=== PATIENT | female | born 1965 | race Caucasian/White ===

== ENCOUNTER 2020-07-19 07:35 | Outpatient (REF) | payer MEDICARE, MEDICAID, SELFPAY ==
--- NOTE | ~2020-07-19 | XR_ITS ---
EXAMINATION: XR KNEE STANDING, BILATERAL XR KNEE, RIGHT XR KNEE, LEFT CLINICAL INFORMATION: Pain. COMPARISON: Standing bilateral and left knee radiographs dated 09/05/2018. TECHNIQUE: AP weightbearing view of the right and left knee. Lateral and sunrise views of the right and left knee. FINDINGS: Right Knee: Total right knee arthroplasty. No acute hardware or osseous fracture. No perihardware lucency to suggest loosening or infection. No significant joint effusion. No abnormal soft tissue calcification. Left knee: Moderate medial compartment joint space narrowing. Tricompartment marginal osteophytes. Findings have slightly progressed when compared to the prior examination. No osseous erosion. No fracture or dislocation. Trace joint effusion. XR/XR knee LT 2V IMPRESSION: RIGHT KNEE: Total right knee arthroplasty without evidence of complication. LEFT KNEE: Moderate medial as well as mild patellofemoral and lateral compartment osteoarthritis. Trace joint effusion. Findings have slightly progressed when compared to the prior radiographs.
--- NOTE | ~2020-07-19 | XR_ITS ---
EXAMINATION: XR KNEE STANDING, BILATERAL XR KNEE, RIGHT XR KNEE, LEFT CLINICAL INFORMATION: Pain. COMPARISON: Standing bilateral and left knee radiographs dated 09/05/2018. TECHNIQUE: AP weightbearing view of the right and left knee. Lateral and sunrise views of the right and left knee. FINDINGS: Right Knee: Total right knee arthroplasty. No acute hardware or osseous fracture. No perihardware lucency to suggest loosening or infection. No significant joint effusion. No abnormal soft tissue calcification. Left knee: Moderate medial compartment joint space narrowing. Tricompartment marginal osteophytes. Findings have slightly progressed when compared to the prior examination. No osseous erosion. No fracture or dislocation. Trace joint effusion. XR/XR knee standing BI IMPRESSION: RIGHT KNEE: Total right knee arthroplasty without evidence of complication. LEFT KNEE: Moderate medial as well as mild patellofemoral and lateral compartment osteoarthritis. Trace joint effusion. Findings have slightly progressed when compared to the prior radiographs.
--- NOTE | ~2020-07-19 | XR_ITS ---
EXAMINATION: XR KNEE STANDING, BILATERAL XR KNEE, RIGHT XR KNEE, LEFT CLINICAL INFORMATION: Pain. COMPARISON: Standing bilateral and left knee radiographs dated 09/05/2018. TECHNIQUE: AP weightbearing view of the right and left knee. Lateral and sunrise views of the right and left knee. FINDINGS: Right Knee: Total right knee arthroplasty. No acute hardware or osseous fracture. No perihardware lucency to suggest loosening or infection. No significant joint effusion. No abnormal soft tissue calcification. Left knee: Moderate medial compartment joint space narrowing. Tricompartment marginal osteophytes. Findings have slightly progressed when compared to the prior examination. No osseous erosion. No fracture or dislocation. Trace joint effusion. XR/XR knee RT 2V IMPRESSION: RIGHT KNEE: Total right knee arthroplasty without evidence of complication. LEFT KNEE: Moderate medial as well as mild patellofemoral and lateral compartment osteoarthritis. Trace joint effusion. Findings have slightly progressed when compared to the prior radiographs.
== END 2020-07-19 07:36 | disposition home or self-care (01) ==
LOC: HO.HOSX 07:35
PROVIDERS: Visit Provider Orthopaedic Surgery
DX: M25.562 Pain in left knee (principal); M23.92 Unspecified internal derangement of left knee; E78.00 Pure hypercholesterolemia, unspecified; F41.9 Anxiety disorder, unspecified; F31.9 Bipolar disorder, unspecified; R41.3 Other amnesia; F17.200 Nicotine dependence, unspecified, uncomplicated; Z96.642 Presence of left artificial hip joint; Z96.652 Presence of left artificial knee joint
CPT/HCPCS: 73560; 73565; 99212

== ENCOUNTER 2020-07-28 09:42 | Outpatient (REF) | payer MEDICARE, MEDICAID, SELFPAY ==
--- NOTE | ~2020-07-28 | MR_ITS ---
EXAMINATION: MR KNEE WITHOUT CONTRAST, LEFT CLINICAL INFORMATION: Left knee pain COMPARISON: Radiographs 07/19/2020 TECHNIQUE: MRI of the knee without contrast was performed using routine sequences on a high-field scanner. FINDINGS: MENISCI: Medial Meniscus: The body and posterior horn are diminutive, likely reflecting chronic tearing and attritional wear. There is an oblique undersurface tear of the posterior horn, and a small undersurface tear of the meniscal body. Lateral Meniscus: Complex tearing of the posterior horn with a prominent horizontal component. The meniscal body is extruded. LIGAMENTS: Cruciate: Intact Collateral: Intact EXTENSOR MECHANISM: Intact ARTICULAR CARTILAGE/BONE: Patellofemoral Compartment: Mild cartilage thinning and surface irregularity of the lateral patellar facet. Small marginal osteophytes. Medial Compartment: Mild cartilage thinning throughout the weightbearing aspect with small marginal osteophytes. Lateral Compartment: Moderate cartilage thinning of the tibia posteriorly and posterior weightbearing femoral condyle. Prominent marginal osteophytes. JOINT FLUID AND BURSAE: No significant joint effusion. MR/MR knee LT wo con IMPRESSION: Chronic appearing tearing of the medial meniscus body and posterior horn and posterior horn of the lateral meniscus. Moderate lateral and mild medial/patellofemoral compartment osteoarthritis. No significant joint effusion.
== END 2020-07-28 09:43 | disposition home or self-care (01) ==
LOC: HO.MRI 09:42
PROVIDERS: Visit Provider Orthopaedic Surgery
DX: M23.92 Unspecified internal derangement of left knee (principal)
CPT/HCPCS: 73721

== ENCOUNTER → 2020-08-16 10:24 | Outpatient (BNVA) | payer MEDICARE, MEDICAID, SELFPAY | PROVIDERS: Visit Provider Orthopaedic Surgery | DX: S83.289A Other tear of lateral meniscus, current injury, unspecified knee, initial encounter (principal); S83.249A Other tear of medial meniscus, current injury, unspecified knee, initial encounter | CPT/HCPCS: 99212 ==

== ENCOUNTER 2020-09-01 06:00 | Day surgery (SDC) | payer MEDICARE, MEDICAID, SELFPAY ==
[2020-08-27 11:58] VITALS: BMI 25.4
--- NOTE | 2020-08-31 09:15 | P.CONAN_ITS ---
HPI - Anesthesia Eval Consult details Narrative: 54yo F for Left Knee Arthroscopy PMFSH Past Medical History Medical History Anxiety Bipolar 1 disorder COVID-19 vaccine series completed High cholesterol Insomnia Memory loss Seasonal allergies Wears partial dentures Family History Family History Mother No problems noted. Father No problems noted. Surgical History Surgical History History of History of left hip replacement History of total left knee replacement Social History Social History Alcohol intake: never Smoking Status: Current every day smoker Cigarettes Per Day: 4 Current occupational status: disabled [employer] Allergies Allergy/AdvReac Type Severity Reaction Status Date / Time none Allergy Unknown Unknown Uncoded 09/01/20 06:16 Home Medications Medication Instructions Recorded Confirmed Last Taken Type buspirone 15 mg tablet 15 mg PO QAM 07/19/20 08/27/20 Unknown History cetirizine 10 mg tablet 10 mg PO DAILY 07/19/20 08/27/20 Unknown History clonazepam 1 mg tablet 1 mg PO BEDTIME 07/19/20 08/27/20 Unknown History prazosin 5 mg capsule 5 mg PO BEDTIME 07/19/20 08/27/20 Unknown History temazepam 30 mg capsule 0 mg PO 07/19/20 Unknown History tetrahydrozoline 0.05 % eye drops 0 drp OPHTHALMIC (EYE) DIRECTED 07/19/20 08/27/20 Unknown History trazodone 150 mg tablet 150 mg PO BEDTIME PRN 07/19/20 08/27/20 Unknown History zolpidem 10 mg tablet 10 mg PO BEDTIME PRN 07/19/20 08/27/20 Unknown History Exam Exam Date and Time: August 31, 2020 0915 Height,Weight and Vital Signs: Height 5 ft 4 in Weight 67.132 kg Assessment and Plan Assessment Anesthesia Assessment: Chart Reviewed
[2020-09-01] VITALS (8 sets, daily range): BP systolic 100–123; BP diastolic 62–74; PULSE 70–82; RESP 16; TEMP 36.2; O2SAT 97–100
[2020-09-01] MEDS: Lactated Ringers 1,000 ML 100 ML IVCONT (06:41)
--- NOTE | 2020-09-01 07:11 | P.CONAN_ITS ---
[facility] Past Medical History Medical History Anxiety Bipolar 1 disorder COVID-19 vaccine series completed High cholesterol Insomnia Memory loss Seasonal allergies Wears partial dentures Family History Family History Mother No problems noted. Father No problems noted. Surgical History Surgical History History of History of left hip replacement History of total left knee replacement Social History Social History Alcohol intake: never Smoking Status: Current every day smoker Cigarettes Per Day: 4 Are you DNR?: No Advance Directives: No Advance Directives Information Provided: No Advance Directives on File: No Current occupational status: disabled Meds Allergies Allergy/AdvReac Type Severity Reaction Status Date / Time none Allergy Unknown Unknown Uncoded 09/01/20 06:16 Active Medications: Current Medications Generic Name Dose Route Start Last Admin Trade Name Freq PRN Reason Stop Dose Admin Albuterol Sulfate 2.5 mg 09/01/20 06:11 Albuterol Sulfate (0.083%) 2.5 Mg/3 Ml Vial.Neb INHALE ONCE PRN Shortness of Breath/Wheezing Lactated Ringer's 1,000 mls @ 100 mls/hr 09/01/20 06:15 09/01/20 06:41 Lr IVCONT 100 mls/hr .Q10H IRASEMA Administration Home Medications Medication Instructions Recorded Confirmed Last Taken Type buspirone 15 mg tablet 15 mg PO QAM 07/19/20 08/27/20 Unknown History cetirizine 10 mg tablet 10 mg PO DAILY 07/19/20 08/27/20 Unknown History clonazepam 1 mg tablet 1 mg PO BEDTIME 07/19/20 08/27/20 Unknown History prazosin 5 mg capsule 5 mg PO BEDTIME 07/19/20 08/27/20 Unknown History temazepam 30 mg capsule 0 mg PO 07/19/20 Unknown History tetrahydrozoline 0.05 % eye drops 0 drp OPHTHALMIC (EYE) DIRECTED 07/19/20 08/27/20 Unknown History trazodone 150 mg tablet 150 mg PO BEDTIME PRN 07/19/20 08/27/20 Unknown History zolpidem 10 mg tablet 10 mg PO BEDTIME PRN 07/19/20 08/27/20 Unknown History Exam Exam Date and Time: September 01, 2020 0711 Height,Weight and Vital Signs: Height 5 ft 4 in Weight 67.132 kg Last Vital Signs Temp 97.2 F 09/01/20 06:29 Pulse 70 09/01/20 06:29 Resp 16 09/01/20 06:29 BP 102/71 09/01/20 06:29 Pulse Ox 97 09/01/20 06:29 Airway Mallampati Class: II TM Dist: >3cm Neck ROM: Full Partial: Lower Heart: RRR Lungs: CTA
--- NOTE | 2020-09-01 07:27 | MHC.SHP ---
Pre-Procedural Eval Section A The patient is an INPATIENT: No Changes since office visit: Yes Patient answered all questions; No Cold of Flu in the past 2 weeks, No New Medical Problems and No Changes in Medication The History & Physical has been completed within 30 days and I have reviewed it.: Yes Section B Chief Complaint: left knee pain Allergies: Allergies Allergy/AdvReac Type Severity Reaction Status Date / Time none Allergy Unknown Unknown Uncoded 09/01/20 06:16 Plan I have reviewed the history and physical and performed a pertinent physical examination on my patient. No changes have occurred unless specified.
--- NOTE | 2020-09-01 08:13 | PM.OP ---
Brief Operative Note Date of Service: 09/01/20 Pre-op diagnosis: left knee medial meniscus tear Post-op diagnosis: other Procedure: medial meniscus tear lateral meniscus tear knee OA Implants: none Surgeon: Ten Lim MD Anesthesia: GETA and local Was an Mixer Operator Raw Salt used for this Procedure?: No Estimated blood loss (mL): 0 Tourniquet time (min): 27 IV fluids (mL): 650 Pathology: none sent Condition: stable Disposition: PACU
--- NOTE | 2020-09-01 08:16 | W.PM.OPN ---
Operative Note Operative Note Date of Service: 09/01/20 Narrative: Pre-op diagnosis: left knee medial meniscus tear Post-op diagnosis: other Procedure: medial meniscus tear lateral meniscus tear knee OA Implants: none Surgeon: Ten Lim MD Anesthesia: GETA and local Was an Platen Press Operator Apprentice used for this Procedure?: No Estimated blood loss (mL): 0 Tourniquet time (min): 27 IV fluids (mL): 650 Pathology: none sent Condition: stable Disposition: PACU Procedure in detail: Patient was brought to the operating room placed supine on the arthroscopic table and prepped and draped in standard sterile fashion. A time-out was called to identify proper site proper procedure proper surgeon and IV antibiotics per weight were administered. I began by exsanguinating the limb and insufflating tourniquet to 300 mm Hg. Then made a standard anterolateral stab incision. The knee was insufflated with water and 30 degree arthroscope was placed. There was grade 1 fibrillations of the lateral aspect of the central patellar facet but overall suprapatellar pouch was clean and the gutters were clean. I descended into the medial compartment where I made my medial portal under direct visualization. There was a chronic complex tear of the body and posterior horn of the medial meniscus. Root was intact and there was grade 1 changes with some scattered grade 2 changes throughout the medial compartment. I used a combination of biter shaver and cautery to remove unstable portions of the meniscus. Approximately 40% of the meniscal volume was removed but the body waas scarred and diminutive. The ACL was examined and found to be intact and the lateral compartment had G4 changes of the tibia and a degenerative tear of the body of the lateral meniscus. There was a flap tear extending into the root but the meniscus was stable. I used a biter and a shaver to debride this down to stable edges. I then removed all instrumentation and closed the portals with skin glue. 25 mL of 2% Marcaine with epinephrine was injected into the joint and the surrounding soft tissues. Patient was then placed in sterile dressing extubated brought recovery room stable condition. There were no known complications.
[2020-09-01] MEDS: Acetaminophen 325 MG TABLET 650 MG PO (08:47)
[2020-09-01] MEDS: oxyCODONE HCl Immed Release 5 MG TABLET PO (08:48)
--- NOTE | 2020-09-01 14:16 | HO.POSTANES ---
Post Anesthesia Evaluation Post Anesthesia Evaluation Vital Signs: Vital Signs Temp Pulse Resp BP Pulse Ox 09/01/20 09:35 97.1 F 82 16 107/62 98 09/01/20 09:20 80 16 105/62 97 09/01/20 09:05 80 16 100/63 97 09/01/20 08:50 81 16 107/64 99 09/01/20 08:45 80 16 114/63 100 09/01/20 08:40 74 16 106/65 100 09/01/20 08:35 97.1 F 74 16 123/74 100 09/01/20 06:29 97.2 F 70 16 102/71 97 Anesthesia: General Mental Status: Awake Pain Control: Satisfactory Nausea/Vomiting: None Hydration: Adequate Anesthesia-Related Issues: No Anes. Related Issues
== END 2020-09-01 10:29 | disposition home or self-care (01) ==
PROVIDERS: Visit Provider Orthopaedic Surgery
PROC: (CPT 29870; principal; 2020-09-01 07:30)
DX: M23.222 Derangement of posterior horn of medial meniscus due to old tear or injury, left knee (principal); M23.301 Other meniscus derangements, unspecified lateral meniscus, left knee; M17.0 Bilateral primary osteoarthritis of knee; F31.9 Bipolar disorder, unspecified; Z79.899 Other long term (current) drug therapy; Z96.642 Presence of left artificial hip joint; Z96.652 Presence of left artificial knee joint; R41.3 Other amnesia; F17.210 Nicotine dependence, cigarettes, uncomplicated
CPT/HCPCS: 29880; J0171; J0690; J1100; J1885; J2250; J2405; J3010

== ENCOUNTER 2020-09-07 09:56 | Emergency (ER) | payer MEDICARE, MEDICAID, SELFPAY ==
--- NOTE | ~2020-09-07 | US_ITS ---
EXAMINATION: US VENOUS ULTRASOUND WITH DOPPLER LOWER EXTREMITY, LEFT CLINICAL INFORMATION: Left lower extremity swelling, status post procedure and 519. COMPARISON: None TECHNIQUE: Ultrasound of the deep veins is performed from the hip to the calf with compression sonography and color and pulse Doppler assessment. Spectral analysis with color-flow imaging is performed. FINDINGS: There is acute clot visualized in the left greater saphenous vein, proximal, mid and distal special femoral veins extending into the popliteal vein. The posterior tibial vein has some flow. The right common femoral vein is patent as well. There is no left-sided Rose's cyst. If the patient's symptoms persist, followup ultrasound in 5 days 7 days might be of value to exclude proximal propagation from a non-visualized calf vein. US/US venous duplex LE IMPRESSION: Acute thrombus left lower extremity.
--- NOTE | ~2020-09-07 | CT_ITS ---
EXAMINATION: CT ANGIOGRAM OF THE CHEST WITH AND WITHOUT CONTRAST (CT PULMONARY ANGIOGRAM FOR PE) CLINICAL INFORMATION: Reason for Exam +DVT. R/o PE. c/o SOB COMPARISON: None TECHNIQUE: Prior to contrast administration, noncontrast localization images were obtained. Subsequently, multidetector volumetric imaging was performed from the thoracic inlet to below the diaphragms following the administration of 80 mL Omnipaque 350 intravenous contrast. No contrast reaction reported Sagittal, coronal, and MIP oblique sagittal reformatted images were obtained on the CT workstation, uploaded to PACS, and reviewed. This CT examination was performed using dose optimization techniques as appropriate, variously including the following: *Automated exposure control *Adjustment of mA and/or kV according to patient size (this includes techniques or standardized protocols for targeted exams where dose is matched to indication/reason for exam; i.e. extremities or head) *Use of iterative reconstruction technique Total exam dose-length product 250 mGy-cm FINDINGS: QUALITY OF STUDY/CONTRAST BOLUS: Satisfactory. PULMONARY ARTERIES: No central or segmental pulmonary emboli. THORACIC AORTA: No aneurysm or dissection. LUNG: No focal consolidation, nodules or masses. There is focal atelectatic changes in the right middle lobe. There is a groundglass opacity seen in both upper lobes and both lower lobes PLEURA: No pleural effusion or pneumothorax. MEDIASTINUM: Normal heart size. There is mild pericardial effusion. No hilar or mediastinal lymphadenopathy. No evidence of septal bowing or right heart strain. CHEST WALL/AXILLA: No axillary or internal mammary lymphadenopathy. OSSEOUS STRUCTURES: No acute or suspicious osseous abnormality. UPPER ABDOMEN: Unremarkable. No reflux of contrast into the hepatic veins to suggest elevated right heart pressures. CT/CT angio chest PE protocol IMPRESSION: No evidence of PE. No evidence of aortic dissection or aneurysm. Small pericardial effusion. Right middle lobe platelike atelectasis. Nonspecific groundglass opacity in both upper lobes and lower lobes could be secondary to airway disease. VTE: negative
[2020-09-07 10:02] VITALS: BP 121/81; PULSE 96; RESP 16; TEMP 36.9; O2SAT 97; BMI 25.7
--- NOTE | 2020-09-07 10:54 | ECG_ITS ---
Test Reason : R/O PE Blood Pressure : / mmHG Vent. Rate : 083 BPM Atrial Rate : 083 BPM P-R Int : 188 ms QRS Dur : 080 ms QT Int : 378 ms P-R-T Axes : 056 017 037 degrees QTc Int : 444 ms Normal sinus rhythm Normal ECG When compared with ECG of 26-APR-2016 10:10, Nonspecific T wave abnormality no longer evident in Lateral leads Referred By: Nicky Aquino Electronically Signed By:DACIA PINK
[2020-09-07 12:47] LABS: MANUAL DIFF FLAG NO
[2020-09-07 12:50] LABS: Basophils Absolute Auto 0.1 X10*3/uL (0.0-0.2); Basophils Percent Auto 0.5 % (0-2); Eosinophils Absolute Auto 0.2 X10*3/uL (0.0-0.4); Eosinophils Percent Auto 1.8 % (0-4); Hematocrit 37.2 % (37-47); Hemoglobin 12.1 g/dl (12.0-16.0); Imm Gran Abs Auto 0.02 X10*3/uL (0.00-0.03); Imm Gran Pct Auto 0.2 % (0.0-0.4); Lymphocytes Absolute Auto 1.8 X10*3/uL (1.2-4.9); Mean Corpuscular HGB Conc 32.5 g/dl (31.0-35.0); Mean Corpuscular Hemoglobin 29.9 pg (27.0-33.0); Mean Corpuscular Volume 91.9 fL (80-98); Monocytes Absolute Auto 0.4 X10*3/uL (0.1-1.2); Monocytes Percent Auto 4.2 % (2-11); Neutrophils Percent Auto 74.3 % (45-73); Platelet Count 203 X10*3/uL (160-400); Red Blood Count 4.05 X10*6/uL (4.20-5.50); Red Cell Distribution Width 12.6 % (11.0-16.0); White Blood Count 9.5 X10*3/uL (4.8-10.8)
[2020-09-07 12:55] LABS: INTERNATIONAL NORM RATIO 1.1 (0.9-1.1); Prothrombin Time 13.1 SEC (10.8-13.0)
[2020-09-07 13:12] LABS: Partial Thromboplastin Time 39.8 SEC (24.1-38.0)
[2020-09-07] MEDS: Acetaminophen 325 MG TABLET 650 MG PO (13:13)
[2020-09-07] MEDS: oxyCODONE HCl Immed Release 5 MG TABLET PO (13:14)
--- NOTE | 2020-09-07 13:14 | PC.NURSE ---
IV placed, labs obtained, and pt medicated for pain. Awaiting disposition/plan at this time.
[2020-09-07 13:15] LABS: Alanine Aminotransferase 15 U/L (0-31); Albumin Level 4.4 g/dL (3.5-5.0); Alkaline Phosphatase 74 U/L (39-117); Anion Gap 14 (12-20); Aspartate Amino Transferase 17 U/L (5-31); Bilirubin Direct 0.2 mg/dL (0.0-0.5); Bilirubin Total 0.3 mg/dL (0.0-1.0); Blood Urea Nitrogen 10 mg/dL (9-16); Calcium 9.4 mg/dL (8.4-10.2); Carbon Dioxide 26 mmol/L (22-29); Chloride 102 mmol/L (96-108); Creatinine Clr Calc Pharmacy 88.1; Estimated Glomerular Filt Rate > 60; Glucose Random 100 mg/dL (60-115); Magnesium 2.1 mg/dL (1.6-2.6); Potassium 4.4 mmol/L (3.3-5.1); Sodium 138 mmol/L (135-145); Total Protein 7.2 g/dL (6.5-8.0)
[2020-09-07 13:21] LABS: B Type Natriuretic Peptide < 10 pg/mL (<100)
[2020-09-07 13:38] LABS: D Dimer 22180 NG/ML
--- NOTE | 2020-09-07 14:38 | ED.LOWEXIN ---
HPI - Extremity Injury (Lower) General Chief Complaint: Extremity Injury, Lower Stated Complaint: lt leg pain Time Seen by Provider: 09/07/20 10:52 Source: patient Mode of arrival: ambulatory History of Present Illness HPI Narrative: 54-year-old female with a past medical history of anxiety, bipolar, Derrek and Derrek COVID-19 vaccine, hyperlipidemia, seasonal allergies, meniscal surgery on 09/01, presenting to the ED complaining of left lower extremity pain and swelling worsening since surgery but over the past few days. Reports ecchymosis to ankle. Denies taking anticoagulation. Does report mild SOB. Denies fever, chills, numbness, tingling, weakness, chest pain, recent travel, history of blood clots, long car rides, oral OCPs Related Data Home Medications Medication Instructions Recorded Confirmed buspirone 15 mg tablet 15 mg PO QAM 07/19/20 08/27/20 cetirizine 10 mg tablet 10 mg PO DAILY 07/19/20 08/27/20 clonazepam 1 mg tablet 1 mg PO BEDTIME 07/19/20 08/27/20 prazosin 5 mg capsule 5 mg PO BEDTIME 07/19/20 08/27/20 temazepam 30 mg capsule 0 mg PO 07/19/20 tetrahydrozoline 0.05 % eye drops 0 drp OPHTHALMIC (EYE) DIRECTED 07/19/20 08/27/20 trazodone 150 mg tablet 150 mg PO BEDTIME PRN 07/19/20 08/27/20 zolpidem 10 mg tablet 10 mg PO BEDTIME PRN 07/19/20 08/27/20 Previous Rx's Medication Instructions Recorded meloxicam 15 mg tablet 15 mg PO DAILY 30 Days #30 tab 07/19/20 hydrocodone-acetaminophen 1 tab PO Q8H PRN #28 tab 09/01/20 Compression socks, small #1 ea 09/07/20 acetaminophen [Tylenol Extra 500 mg PO Q6H PRN #20 tab 09/07/20 Strength] apixaban 5 mg PO PER PKG DIR #74 ea 09/07/20 azithromycin See Rx Instructions .ROUTE 09/07/20 .COMPLEX #6 tab oxycodone 5 mg PO Q8H PRN 3 Days #9 tab 09/07/20 Allergies Allergy/AdvReac Type Severity Reaction Status Date / Time No Known Allergies Allergy Verified 09/07/20 10:10 Review of Systems Review of Systems: Constitutional: No Fever, No Chills Cardiovascular: No Chest Pain, +SOB, No Dyspnea on Exertion, +LLE Edema Respiratory: No Cough, No Dyspnea Gastrointestinal: No Nausea, No Vomiting, No Abdominal pain Musculoskeletal: + joint pain, No Myalgias, + Joint Swelling Skin:+ ecchymosis Neuro: No Weakness, No Numbness, No Paresthesias Yes all other systems are reviewed and are negative [facility] Past Medical History Attestation statement: The following information was validated with the patient. Medical History (Updated 09/07/20 @ 16:21 by MANUEL Bautista) Anxiety Bipolar 1 disorder COVID-19 vaccine series completed High cholesterol Insomnia Memory loss Seasonal allergies Wears partial dentures Surgical History History of History of left hip replacement History of total left knee replacement Family History Family History Mother No problems noted. Father No problems noted. Social History Social History Alcohol intake: never Smoking Status: Current every day smoker Cigarettes Per Day: 4 Advance Directives: No Advance Directives Information Provided: No Current occupational status: disabled Physical Exam Vital Signs: Vital Signs: Last Vital Signs Temp 98.5 F 09/07/20 10:02 Pulse 96 09/07/20 10:02 Resp 16 09/07/20 10:02 BP 121/81 09/07/20 10:02 Pulse Ox 97 09/07/20 10:02 Body Mass Index 25.7 Const: General: cooperative and healthy appearing Orientation/consciousness: patient oriented x3 Limitations: no limitations HENMT: Head: Yes normal to inspection Ears: hearing grossly normal bilaterally General nose exam: Normal external nose present Face and sinus: Yes normal facial exam Eyes: General: appearance normal, both eyes and all related structures EOM: EOMs intact bilaterally Neck: Neck: Yes normal visual inspection Resp: Effort & Inspection: normal respiratory effort, not labored and no stridor Auscultation: clear to auscultation bilaterally and no rhonchi Cardio: Rate: regular rate Heart sounds: S1 normal heart sound present and S2 normal heart sound present GI: Inspection: Yes normal to inspection Skin: Rashes: no rashes Wounds: no wounds Neuro: Other: Limping gait secondary to pain General: patient oriented x3 Extrem: Other: Left lower extremity with notable pitting edema/swelling and ecchymosis to ankle. No superimposed cellulitis. Distal pulses intact. Sensation intact to light touch. Course Course Course Narrative: -no leukocytosis, H&H stable, labs otherwise unremarkable US venous duplex LE LT IMPRESSION: Acute thrombus left lower extremity -D-dimer elevated at 22,180 1440--CT angio chest PE protocol IMPRESSION: No evidence of PE. No evidence of aortic dissection or aneurysm. Small pericardial effusion. Right middle lobe platelike atelectasis. Nonspecific groundglass opacity in both upper lobes and lower lobes could be secondary to airway disease. VTE: negative >> rapid COVID-[address] Muniz, vascular surgery paged pertaining to venous duplex ultrasound results -[id number]-- Spoke to Dr. Muniz, recommended anticoagulation, compression sockings, elevation, and follow up outpatient in a couple weeks. No surgical intervention indicated at this time MDM - Extremity Injury (Lower) MDM Narrative Medical decision making narrative: 54-year-old female with a past medical history of anxiety, bipolar, Derrek and Derrek COVID-19 vaccine, hyperlipidemia, seasonal allergies, meniscal surgery on 09/01, presenting to the ED complaining of left lower extremity pain and swelling worsening since surgery but over the past few days. On exam VSS, NAD, physical exam as above. Concern for DVT/PE vs ?surgical complication Plan: EKG, labs, venous duplex ultrasound, CTA, reassess Medical Records Attestation: I reviewed the patient's medical records. Lab Data Attestation: I reviewed the patient's lab results. Result diagrams: 09/07/20 12:38 09/07/20 12:38 Labs: Lab Results 09/07/20 09/07/20 09/07/20 Range/Units 12:38 12:38 12:38 WBC 9.5 (4.8-10.8) X10*3/uL RBC 4.05 L (4.20-5.50) X10*6/uL Hgb 12.1 (12.0-16.0) g/dl Hct 37.2 (37-47) % MCV 91.9 (80-98) fL MCH 29.9 (27.0-33.0) pg MCHC 32.5 (31.0-35.0) g/dl RDW 12.6 (11.0-16.0) % Plt Count 203 (160-400) X10*3/uL MPV 10.0 (9.4-12.3) fL Immature Gran % (Auto) 0.2 (0.0-0.4) % Neut % (Auto) 74.3 H (45-73) % Lymph % (Auto) 19.0 L (20-40) % [place] % (Auto) 4.2 (2-11) % Eos % (Auto) 1.8 (0-4) % Baso % (Auto) 0.5 (0-2) % Lymph # (Auto) 1.8 (1.2-4.9) X10*3/uL [place] # (Auto) 0.4 (0.1-1.2) X10*3/uL Eos # (Auto) 0.2 (0.0-0.4) X10*3/uL Baso # (Auto) 0.1 (0.0-0.2) X10*3/uL Abs Immat Gran (auto) 0.02 (0.00-0.03) X10*3/uL Absolute Neuts (auto) 7.0 (2.0-8.3) X10*3/uL Absolute Nucleated RBC 0.000 (0.0-0.012) X10*3/uL Nucleated RBC % (auto) 0.0 (0.0-0.2) /100WBC PT 13.1 H (10.8-13.0) SEC INR 1.1 (0.9-1.1) APTT 39.8 H (24.1-38.0) SEC D-Dimer NG/ML Sodium 138 (135-145) mmol/L Potassium 4.4 (3.3-5.1) mmol/L Chloride 102 (96-108) mmol/L Carbon Dioxide 26 (22-29) mmol/L Anion Gap 14 (12-20) BUN 10 (9-16) mg/dL Creatinine 0.70 (0.5-1.4) mg/dL Estim Creat Clear Calc 88.1 Estimated GFR > 60 Random Glucose 100 (60-115) mg/dL Calcium 9.4 (8.4-10.2) mg/dL Magnesium 2.1 (1.6-2.6) mg/dL Total Bilirubin 0.3 (0.0-1.0) mg/dL Direct Bilirubin 0.2 (0.0-0.5) mg/dL AST 17 (5-31) U/L ALT 15 (0-31) U/L Alkaline Phosphatase 74 (39-117) U/L B-Natriuretic Peptide (<100) pg/mL Total Protein 7.2 (6.5-8.0) g/dL Albumin 4.4 (3.5-5.0) g/dL COVID-19 (BRANDIE) (Negative) COVID-19 Clin Com 09/07/20 09/07/20 09/07/20 Range/Units 12:38 12:38 15:14 WBC (4.8-10.8) X10*3/uL RBC (4.20-5.50) X10*6/uL Hgb (12.0-16.0) g/dl Hct (37-47) % MCV (80-98) fL MCH (27.0-33.0) pg MCHC (31.0-35.0) g/dl RDW (11.0-16.0) % Plt Count (160-400) X10*3/uL MPV (9.4-12.3) fL Immature Gran % (Auto) (0.0-0.4) % Neut % (Auto) (45-73) % Lymph % (Auto) (20-40) % [place] % (Auto) (2-11) % Eos % (Auto) (0-4) % Baso % (Auto) (0-2) % Lymph # (Auto) (1.2-4.9) X10*3/uL [place] # (Auto) (0.1-1.2) X10*3/uL Eos # (Auto) (0.0-0.4) X10*3/uL Baso # (Auto) (0.0-0.2) X10*3/uL Abs Immat Gran (auto) (0.00-0.03) X10*3/uL Absolute Neuts (auto) (2.0-8.3) X10*3/uL Absolute Nucleated RBC (0.0-0.012) X10*3/uL Nucleated RBC % (auto) (0.0-0.2) /100WBC PT (10.8-13.0) SEC INR (0.9-1.1) APTT (24.1-38.0) SEC D-Dimer 70688 NG/ML Sodium (135-145) mmol/L Potassium (3.3-5.1) mmol/L Chloride (96-108) mmol/L Carbon Dioxide (22-29) mmol/L Anion Gap (12-20) BUN (9-16) mg/dL Creatinine (0.5-1.4) mg/dL Estim Creat Clear Calc Estimated GFR Random Glucose (60-115) mg/dL Calcium (8.4-10.2) mg/dL Magnesium (1.6-2.6) mg/dL Total Bilirubin (0.0-1.0) mg/dL Direct Bilirubin (0.0-0.5) mg/dL AST (5-31) U/L ALT (0-31) U/L Alkaline Phosphatase (39-117) U/L B-Natriuretic Peptide < 10 (<100) pg/mL Total Protein (6.5-8.0) g/dL Albumin (3.5-5.0) g/dL COVID-19 (BRANDIE) Negative (Negative) COVID-19 Clin Com See Note Discharge Plan Discharge Clinical Impression: Ground glass opacity present on imaging of lung Acute deep vein thrombosis (DVT) of left lower extremity Qualifiers: Affected thrombotic vein of extremity: unspecified vein of extremity Qualified Code(s): I82.402 - Acute embolism and thrombosis of unspecified deep veins of left lower extremity Patient Disposition: Home, Self-Care Instructions: Apixaban (By mouth), Deep Vein Thrombosis (ED) Additional Instructions: You have a large blood clot in her left leg. Eliquis is a blood thinner, take as prescribed You need to follow-up with a vascular surgeon in 2 weeks outpatient You need to wear compression stockings, and elevate your leg Taking a blood thinner but do bleeding risk, if you fall and hit her head, have any blood in your urine, cough up blood, black or red stools return to the ED Take Tylenol for pain In addition oxycodone is for severe pain, take for the next couple days Your CT scan of her chest did not show any blood clots in her lungs however did show nonspecific opacities, azithromycin is an antibiotic, take as prescribed Follow-up with her doctor Prescriptions: New apixaban 5 mg (74 tabs) tablets,dose pack 5 mg PO PER PKG DIR Qty: 74 RF: 0 acetaminophen [Tylenol Extra Strength] 500 mg tablet 500 mg PO Q6H PRN (Reason: pain or fever) Qty: 20 RF: 0 azithromycin 250 mg tablet See Rx Instructions .ROUTE .COMPLEX Qty: 6 RF: 0 oxycodone 5 mg tablet 5 mg PO Q8H PRN (Reason: pain, severe) 3 Days Qty: 9 RF: 0 (DME) Compression socks, small Misc See Rx Instructions .ROUTE .MEDSUPPLY Qty: 1 RF: 0 No Action hydrocodone-acetaminophen 5-325 mg tablet 1 tab PO Q8H PRN (Reason: pain (scale score 4-6)) Qty: 28 RF: 0 buspirone 15 mg tablet 15 mg PO QAM RF: 0 tetrahydrozoline 0.05 % drops 0 drp ophthalmic (eye) DIRECTED RF: 0 cetirizine 10 mg tablet 10 mg PO DAILY RF: 0 zolpidem 10 mg tablet 10 mg PO BEDTIME PRN (Reason: Insomnia) RF: 0 trazodone 150 mg tablet 150 mg PO BEDTIME PRN (Reason: Insomnia) RF: 0 clonazepam 1 mg tablet 1 mg PO BEDTIME RF: 0 temazepam 30 mg capsule 0 mg PO RF: 0 prazosin 5 mg capsule 5 mg PO BEDTIME RF: 0 meloxicam 15 mg tablet 15 mg PO DAILY 30 Days Qty: 30 RF: 3 Referrals: Randall Muniz MD [Physician] - 2 weeks Interventions: ED Discharge Assessment Last Done: 09/07/20 16:35 Discharge Date/Time: 09/07/20 16:41
[2020-09-07 15:38] LABS: COVID-19 Test Negative (Negative); IDNOW Serial# 9DD0AD1C
[2020-09-07] MEDS: Apixaban 5 MG TABLET 10 MG PO (16:23)
== END 2020-09-07 16:41 | disposition home or self-care (01) ==
PROVIDERS: Physician Assistant; Emergency Provider Emergency Medicine
DX: I82.402 Acute embolism and thrombosis of unspecified deep veins of left lower extremity (principal); R91.8 Other nonspecific abnormal finding of lung field; M79.605 Pain in left leg; R22.42 Localized swelling, mass and lump, left lower limb; Z20.822 Contact with and (suspected) exposure to COVID-19; E78.5 Hyperlipidemia, unspecified; F17.200 Nicotine dependence, unspecified, uncomplicated
CPT/HCPCS: 36415; 71275; 80048; 80076; 83735; 83880; 85025; 85379; 85610; 85730; 87635; 93005; 93971; 99284

== ENCOUNTER → 2020-09-09 13:09 | Outpatient (BNVA) | payer MEDICARE, MEDICAID, SELFPAY | PROVIDERS: Visit Provider Orthopaedic Surgery | DX: M17.12 Unilateral primary osteoarthritis, left knee (principal); I82.412 Acute embolism and thrombosis of left femoral vein | CPT/HCPCS: 99212 ==

== ENCOUNTER 2020-09-20 11:53 | Outpatient (REF) | payer MEDICARE, MEDICAID, SELFPAY ==
--- NOTE | ~2020-09-20 | MM_ITS ---
EXAMINATION: MM SCREENING DIGITAL BREAST TOMOSYNTHESIS, BILATERAL CLINICAL INFORMATION: Screening. Asymptomatic. The lifetime risk of breast cancer based on the Tyrer-Cuzick Model is 6%. COMPARISON: Mammography: 03/14/2016 TECHNIQUE: Digital breast tomosynthesis is performed in both the craniocaudal and mediolateral oblique views along with computer-aided detection (CAD). Synthesized 2D images are generated from the tomosynthesis. FINDINGS: There are scattered areas of fibroglandular density (ACR BI-RADS breast composition Category b). There are no significant masses, abnormal calcifications, or other abnormalities. The axilla and skin contours are unremarkable. No significant changes. MM/MM tomosynthesis screening BI IMPRESSION: No mammographic evidence of malignancy. ASSESSMENT: BI-RADS 1: Negative RECOMMENDATION: Routine annual mammography screening. This patient's information was entered into a reminder system with a target due date for their next mammogram.
== END 2020-09-20 11:54 | disposition home or self-care (01) ==
LOC: HO.MAMMO 11:53
PROVIDERS: PCP Internal Medicine; Visit Provider Internal Medicine
DX: Z12.31 Encounter for screening mammogram for malignant neoplasm of breast (principal)
CPT/HCPCS: 77063; 77067

== ENCOUNTER → 2020-10-13 08:15 | Outpatient (BNVA) | payer MEDICARE, MEDICAID, SELFPAY | PROVIDERS: PCP Internal Medicine; Visit Provider Nurse Practitioner Family | DX: Z12.11 Encounter for screening for malignant neoplasm of colon (principal); K59.00 Constipation, unspecified | CPT/HCPCS: 99202 ==

== ENCOUNTER 2020-10-14 10:55 | Outpatient (RCR) | payer MEDICARE, MEDICAID, SELFPAY ==
--- NOTE | 2020-10-14 11:49 | MHC.PT.EP ---
[facility] [place] Office [place] Office [place] Office [address]án Tr[place] [address] [phone] F: [phone] F: [phone] F: [phone] F: [phone] Physical Therapy Plan of Care Date of Evaluation: Date of Surgery: 09/01/20 Diagnosis: post-op arthroscopic debridement/partial meniscectomy 09/01 (+) DVT 09/07 (on Eliquis) Assessment: pt presents to physical therapy with pain, decreased range of motion, decreased strength, impaired functional mobility, impaired postural awareness, and gait deviations. pt is a good candidate for skilled PT due to age, potential remediation of impairments, typical disease/condition progression and prognosis, comorbidities, and motivation. pt would benefit from tailored strengthening and stretching exercise program, functional training, gait training, postural re-training, neuromuscular re-education, modalities as needed for pain, equipment safety demonstration. Frequency and Duration: The patient will be seen 2x/wk for 4 wks Short Term Goals: pt will be I w/ HEP to promote self-management of condition. pt will improve L knee extension to 0 degrees to remediate initial contact impairment w/ gait on even ground. Operations Executive Goals: pt will perform 10x STS w/ no UE assist to promote functional independence. pt will report <1/10 L knee pain w/ standing for >15 min to promote full return to self-care ADLs like showering. Treatment Plan: Modalities to reduce pain, spasms and effusion. Manual therapy to restore motion and function. Therapeutic exercise to improve strength and flexibility. Neuromuscular re-education for posture and balance. Therapeutic activities to return to functional activities of daily living. Electronically signed by: Kristie Lozada PT, DPT Please sign and return to therapist. Thank you for your referral.
--- NOTE | 2020-10-25 10:16 | MHC.PT.DC ---
[facility] [place] Office [place] Office [place] Office [address] Iván Tr[place] [address] [facility] [phone] F: [phone] F: [phone] F: [phone] F: [phone] Physical Therapy Discharge Report Diagnosis: post-op arthroscopic debridement/partial meniscectomy 09/01 (+) DVT 09/07 (on Eliquis) Date of Surgery: 09/01/20 Date of Evaluation: 10/14/20 Date of Discharge: 10/25/20 Treatments to Date: 1 Cancellations to Date: 0 No Shows to Date: 2 Discharge Status: Visit Non-compliance Discharge Summary: Per [facility] Core Therapy policy the patient is to be discharged due to failure to comply with attendance policy. Electronically signed by: Kristie Lozada PT, DPT Please sign and return to therapist. Thank you for your referral.
== END 2020-10-25 10:16 | disposition home or self-care (01) ==
LOC: HO.PT 10:55
PROVIDERS: PCP Internal Medicine; Visit Provider Orthopaedic Surgery
DX: M17.12 Unilateral primary osteoarthritis, left knee (principal); I82.412 Acute embolism and thrombosis of left femoral vein
CPT/HCPCS: 97110; 97161

== ENCOUNTER → 2020-11-04 13:06 | Outpatient (BNVA) | payer MEDICARE, MEDICAID, SELFPAY | PROVIDERS: PCP Internal Medicine; Visit Provider Orthopaedic Surgery | DX: M25.562 Pain in left knee (principal); M17.12 Unilateral primary osteoarthritis, left knee; I82.412 Acute embolism and thrombosis of left femoral vein; E78.00 Pure hypercholesterolemia, unspecified; F17.210 Nicotine dependence, cigarettes, uncomplicated; Z96.642 Presence of left artificial hip joint; Z96.652 Presence of left artificial knee joint | CPT/HCPCS: 99212 ==

== ENCOUNTER 2021-02-16 09:27 | Outpatient (REF) | payer MEDICARE, MEDICAID, SELFPAY ==
--- NOTE | ~2021-02-16 | US_ITS ---
EXAMINATION: US ABDOMEN COMPLETE CLINICAL INFORMATION: Elevated LFTs. COMPARISON: None TECHNIQUE: Real-time imaging of the abdominal viscera. FINDINGS: PANCREAS: The visualized pancreatic head and body are unremarkable. The pancreatic tail is obscured by gas. ABDOMINAL AORTA: The proximal, mid, and distal segments are normal in caliber. INFERIOR VENA CAVA: Visualized portions are normal. LIVER: The liver is normal in size. The liver contour is normal. There is diffuse increased liver parenchymal echogenicity, consistent with hepatic steatosis. No focal hepatic lesion. There is no intrahepatic biliary duct dilatation seen. GALLBLADDER: Normal. The gallbladder is physiologically distended without evidence of stones, sludge, polyps, wall thickening or pericholecystic fluid. COMMON BILE DUCT: Normal in caliber measuring 0.4 cm in diameter. RIGHT KIDNEY: Normal. No hydronephrosis. No renal calculi or focal parenchymal lesions. The kidney measures 10.8 cm in maximum dimension. LEFT KIDNEY: Normal. No hydronephrosis. No renal calculi or focal parenchymal lesions. The kidney measures 11.8 cm in maximum dimension. SPLEEN: Normal. The spleen measures 9.5 cm in maximum dimension. FREE FLUID: None. US/US abdomen complete IMPRESSION: Mild hepatic steatosis. Otherwise unremarkable abdominal ultrasound.
== END 2021-02-16 09:28 | disposition home or self-care (01) ==
LOC: HO.US 09:27
PROVIDERS: PCP Internal Medicine; Visit Provider Internal Medicine
DX: R74.01 Elevation of levels of liver transaminase levels (principal)
CPT/HCPCS: 76700

== ENCOUNTER 2021-03-09 11:09 | Outpatient (REF) | payer MEDICARE, MEDICAID, SELFPAY ==
--- NOTE | ~2021-03-09 | US_ITS ---
EXAMINATION: US VENOUS ULTRASOUND WITH DOPPLER LOWER EXTREMITY, LEFT CLINICAL INFORMATION: Follow-up DVT 2 months ago. Patient on blood thinners. COMPARISON: Ultrasound venous duplex left leg 09/07/2020 TECHNIQUE: Ultrasound of the deep veins is performed from the hip to the calf with compression sonography and color and pulse Doppler assessment. Spectral analysis with color-flow imaging is performed. FINDINGS: There is echogenic partial clot left common femoral, profunda, superficial femoral mid and distal segments. Echogenic clot in the left greater saphenous vein, profunda, proximal superficial femoral and popliteal veins appear improved. If the patient's symptoms persist, followup ultrasound in 5 days 7 days might be of value to exclude proximal propagation from a non-visualized calf vein. US/US venous duplex LE IMPRESSION: Residual clot appears improved in the vessels described above. There is a chronic clot/DVT in the left common femoral, mid and distal superficial femoral veins. There are no new areas of echogenic clot..
== END 2021-03-09 11:10 | disposition home or self-care (01) ==
LOC: HO.US 11:09
PROVIDERS: PCP Internal Medicine; Visit Provider Internal Medicine
DX: I82.412 Acute embolism and thrombosis of left femoral vein (principal); Z79.891 Long term (current) use of opiate analgesic; Z79.899 Other long term (current) drug therapy
CPT/HCPCS: 93971

== ENCOUNTER 2021-05-26 10:42 | Outpatient (REF) | payer MEDICARE, MEDICAID, SELFPAY ==
--- NOTE | ~2021-05-26 | CT_ITS ---
EXAMINATION: CT HEAD WITHOUT CONTRAST CLINICAL INFORMATION: Headaches x 3 months worsening. COMPARISON: None TECHNIQUE: Contiguous axial imaging was performed from the skull base to vertex without intravenous administration of contrast. This CT examination was performed using dose optimization techniques as appropriate, variously including the following: *Automated exposure control *Adjustment of mA and/or kV according to patient size (this includes techniques or standardized protocols for targeted exams where dose is matched to indication/reason for exam; i.e. extremities or head) *Use of iterative reconstruction technique DLP: 722 mGy-cm FINDINGS: There is no evidence of acute intracranial hemorrhage or territorial infarction. No abnormal mass effect or midline shift is seen. Gonzalez to white matter differentiation is well preserved. No extra-axial fluid collections are identified. The ventricles are normal in size. There is no abnormal attenuation within the brain parenchyma. The osseous structures and soft tissues are normal. The mastoid air cells and visualized portions of the paranasal sinuses are well aerated. CT/CT head/brain wo con IMPRESSION: No acute intracranial process seen.
== END 2021-05-26 10:43 | disposition home or self-care (01) ==
LOC: HO.CT 10:42
PROVIDERS: PCP Nurse Practitioner Primary Care; Visit Provider Nurse Practitioner Primary Care
DX: R51.9 Headache, unspecified (principal)
CPT/HCPCS: 70450

== ENCOUNTER 2021-09-16 07:51 | Outpatient (REF) | payer MEDICARE, MEDICAID, SELFPAY | END 2021-09-16 07:52 | disposition home or self-care (01) | LOC: HO.HOSX 07:51 | PROVIDERS: Visit Provider Orthopaedic Surgery | DX: Z13.89 Encounter for screening for other disorder (principal) ==

== ENCOUNTER 2021-12-19 00:36 | Emergency (ER) | payer MEDICARE, MEDICAID, SELFPAY ==
--- NOTE | ~2021-12-19 | CT_ITS ---
CT/CT chest wo IV con IMPRESSION: No mediastinal mass or other potential mechanical etiology for the patient's dysphagia. Coronary calcifications. No acute pulmonary parenchymal abnormalities. EXAMINATION: CT CHEST WITHOUT CONTRAST CLINICAL INFORMATION: Dysphagia. Question mass. COMPARISON: CTA chest dated 09/07/2020 TECHNIQUE: Multidetector volumetric CT imaging of the chest was done. Axial MIP volume rendering provided. Sagittal and coronal reformatted images were obtained. This CT examination was performed using dose optimization techniques as appropriate, variously including the following: *Automated exposure control *Adjustment of mA and/or kV according to patient size (this includes techniques or standardized protocols for targeted exams where dose is matched to indication/reason for exam; i.e. extremities or head) *Use of iterative reconstruction technique DLP: 219 mGy-cm FINDINGS: LUNGS: The lungs are clear with no evidence of inflammation or concerning nodules. MEDIASTINUM: Normal heart size. Trace pericardial effusion within physiologic normal limits. Great vessels normal caliber. Coronary calcifications. PLEURA: There is no pleural effusion. No pleural mass or thickening. AXILLA: No lymphadenopathy. UPPER ABDOMEN: Unremarkable. OSSEOUS STRUCTURES: Unremarkable.
[2021-12-19 00:39] VITALS: BP 112/67; PULSE 99; RESP 18; TEMP 37; O2SAT 97; BMI 24.9
[2021-12-19 00:54] VITALS: BP 98/62; PULSE 94; RESP 16; TEMP 36.9; O2SAT 96
--- NOTE | 2021-12-19 01:08 | ED.GENADULT ---
HPI - General Adult General Chief complaint: General Medical Stated complaint: trouble swallowing Time Seen by Provider: 12/19/21 01:21 Source: patient Mode of arrival: ambulatory Limitations: no limitations History of Present Illness HPI narrative: Patient 51 twice old smoker with history of substance abuse comes here for difficulty in swallowing solids for last 1 week patient able to swallow liquids without much problem but when every she eats any solid within few minutes she has to vomit. Patient feels the food stuck in the throat area. Also says she lost about 10 lb in last 1 month. No change in the speech. No shortness of breath no chest pain no abdominal pain no diarrhea patient does have history of anxiety also Related Data Home Medications Medication Instructions Recorded Confirmed buspirone 15 mg tablet 15 mg PO QAM 07/19/20 03/15/21 cetirizine 10 mg tablet 10 mg PO DAILY 07/19/20 03/15/21 clonazepam 1 mg tablet 1 mg PO BEDTIME 07/19/20 03/15/21 prazosin 5 mg capsule 5 mg PO BEDTIME 07/19/20 03/15/21 temazepam 30 mg capsule 30 mg PO DAILY 07/19/20 03/15/21 trazodone 150 mg tablet 150 mg PO BEDTIME PRN Insomnia 07/19/20 03/15/21 zolpidem 10 mg tablet 10 mg PO BEDTIME PRN Insomnia 07/19/20 03/15/21 amitriptyline 25 mg tablet 25 mg PO BEDTIME 10/13/20 03/15/21 nicotine (polacrilex) 2 mg gum 1 ea PO Q2H PRN Smoking Cessation 02/10/21 03/15/21 risperidone 3 mg tablet 1 tab PO BEDTIME 02/10/21 03/15/21 Previous Rx's Medication Instructions Recorded Compression socks, small #1 ea 09/07/20 acetaminophen 500 mg tablet 500 mg PO Q6H PRN pain or fever 09/07/20 (Tylenol Extra Strength) #20 tabs bisacodyl 5 mg tablet,delayed 10 mg PO ONCE 1 day #2 tabs 10/13/20 release (Dulcolax (bisacodyl)) polyethylene glycol 3350 17 238 g PO ONCE #238 grams 10/13/20 gram/dose oral powder (Miralax) sennosides 8.6 mg tablet (Natural 8.6 mg PO BEDTIME PRN constipation 10/13/20 Senna Laxative) #30 tabs meloxicam 15 mg tablet 15 mg PO DAILY 1 month #30 tabs 11/04/20 apixaban 5 mg (74 tabs) tablets in 5 mg PO PER PKG DIR #74 ea 03/15/21 a dose pack Allergies Allergy/AdvReac Type Severity Reaction Status Date / Time No Known Allergies Allergy Verified 11/04/20 13:11 Review of Systems Review of Systems: Yes all other systems are reviewed and are negative [facility] Past Medical History Medical History Anxiety Bipolar 1 disorder COVID-19 vaccine series completed Deep vein thrombosis (DVT) of femoral vein of left lower extremity High cholesterol Insomnia Memory loss Osteoarthritis of left knee Seasonal allergies Wears partial dentures Surgical History History of History of left hip replacement History of total left knee replacement Hx of arthroscopic knee surgery Family History Family History Mother No problems noted. Father Pulmonary embolism Family/Other Breast cancer Stroke Social History Social History Alcohol intake: current Alcohol intake frequency: holidays/special occasions only Alcohol type: wine Patient Tobacco Use Status: Current everyday Tobacco user Tobacco use type: Cigarette Substance Use Type: Crack/Cocaine Advance Directives: No Current occupational status: disabled Physical Exam ED Vital Signs: Vital Signs - 24 hr 12/19/21 00:39 12/19/21 00:54 Temperature 98.6 F 98.5 F Pulse Rate 99 94 Respiratory Rate 18 16 Blood Pressure 112/67 98/62 Pulse Oximetry 97 96 Oxygen Delivery Method Room Air Room Air BMI result Body Mass Index 24.9 Appearance: Alert. Oriented X3. No acute distress. Eyes: PERRLA, No Nystagmus ENT: Pharynx normal. Oral Mucosa moist Neck: Normal inspection. Neck supple. No stridor CVS: Normal heart rate and rhythm. Pulses normal. Respiratory: No respiratory distress. Equal air entry bilateral, no wheezing/rales/rhonchi Abdomen: Soft and nontender. Bowel sounds are present, no mass palpable, no CVA tenderness Skin: Skin warm and dry. Normal skin color. Normal skin turgor. Extremities: No lower extremity edema. No calf tenderness Neuro: Oriented X 3. No motor deficit. Medical Decision Making MDM Narrative Medical decision making narrative: Patient will drink liquids but whenever she eats solid feels food getting stuck in the upper part chest CT scan report is pending will give IV glucagon Lab Data Lab results reviewed: Yes I reviewed the patient's lab results. Result diagrams: 12/19/21 01:35 12/19/21 01:35 Labs: Lab Results 12/19/21 Range/Units 01:35 WBC 7.3 (4.8-10.8) X10*3/uL RBC 3.79 L (4.20-5.50) X10*6/uL Hgb 10.9 L (12.0-16.0) g/dl Hct 33.6 L (37.0-47.0) % MCV 88.7 (80.0-98.0) fL MCH 28.8 (27.0-33.0) pg MCHC 32.4 (31.0-35.0) g/dl RDW 13.1 (11.0-16.0) % Plt Count 344 (160-400) X10*3/uL MPV 9.5 (9.4-12.3) fL Immature Gran % (Auto) 0.1 (0.0-0.4) % Neut % (Auto) 66.0 (45-73) % Lymph % (Auto) 26.5 (20-40) % [place] % (Auto) 5.9 (2-11) % Eos % (Auto) 0.8 (0-4) % Baso % (Auto) 0.7 (0-2) % Lymph # (Auto) 1.9 (1.2-4.9) X10*3/uL [place] # (Auto) 0.4 (0.1-1.2) X10*3/uL Eos # (Auto) 0.1 (0.0-0.4) X10*3/uL Baso # (Auto) 0.1 (0.0-0.2) X10*3/uL Abs Immat Gran (auto) 0.01 (0.00-0.03) X10*3/uL Absolute Neuts (auto) 4.8 (2.0-8.3) x10*3/uL Absolute Nucleated RBC 0.000 (0.0-0.012) X10*3/uL Nucleated RBC % (auto) 0.0 (0.0-0.2) /100WBC Discharge Plan Discharge Clinical Impression: Dysphagia Patient Disposition: Still a Patient Instructions: Dysphagia (ED) Additional Instructions: Have full liquid diet for now and follow with photograph inspector Report to the ER if vomiting or choking on a liquid diet Take Protonix daily Prescriptions: No Action acetaminophen [Tylenol Extra Strength] 500 mg tablet 500 mg PO Q6H PRN (Reason: pain or fever) Qty: 20 0RF (DME) Compression socks, small Misc See Rx Instructions .ROUTE .MEDSUPPLY Qty: 1 0RF Rx Instructions: As directed nicotine (polacrilex) 2 mg gum 1 ea PO Q2H PRN (Reason: Smoking Cessation) risperidone 3 mg tablet 1 tab PO BEDTIME apixaban 5 mg (74 tabs) tablets,dose pack 5 mg PO PER PKG DIR Qty: 74 0RF Rx Instructions: Take 2 tablets (10 mg) twice daily for 7 days; followed by 1 tablet (5 mg) twice daily buspirone 15 mg tablet 15 mg PO QAM cetirizine 10 mg tablet 10 mg PO DAILY zolpidem 10 mg tablet 10 mg PO BEDTIME PRN (Reason: Insomnia) trazodone 150 mg tablet 150 mg PO BEDTIME PRN (Reason: Insomnia) clonazepam 1 mg tablet 1 mg PO BEDTIME temazepam 30 mg capsule 30 mg PO DAILY prazosin 5 mg capsule 5 mg PO BEDTIME meloxicam 15 mg tablet 15 mg PO DAILY 30 Days Qty: 30 3RF amitriptyline 25 mg tablet 25 mg PO BEDTIME bisacodyl [Dulcolax (bisacodyl)] 5 mg tablet,delayed release (DR/EC) 10 mg PO ONCE 1 Days Qty: 2 0RF Rx Instructions: take 2 tabs at noon the day before your colonoscopy sennosides [Natural Senna Laxative] 8.6 mg tablet 8.6 mg PO BEDTIME PRN (Reason: constipation) Qty: 30 1RF polyethylene glycol 3350 [Miralax] 17 gram/dose powder 238 g PO ONCE Qty: 238 0RF Rx Instructions: As directed by gastroenterology department at [facility] Referrals: Ben Pedroza MD [Physician] - 1 week
[2021-12-19 01:44] LABS: MANUAL DIFF FLAG NO
[2021-12-19 01:45] LABS: Basophils Absolute Auto 0.1 X10*3/uL (0.0-0.2); Basophils Percent Auto 0.7 % (0-2); Eosinophils Absolute Auto 0.1 X10*3/uL (0.0-0.4); Eosinophils Percent Auto 0.8 % (0-4); Hematocrit 33.6 % (37.0-47.0); Hemoglobin 10.9 g/dl (12.0-16.0); Imm Gran Abs Auto 0.01 X10*3/uL (0.00-0.03); Imm Gran Pct Auto 0.1 % (0.0-0.4); Lymphocytes Absolute Auto 1.9 X10*3/uL (1.2-4.9); Lymphocytes Percent Auto 26.5 % (20-40); Mean Corpuscular HGB Conc 32.4 g/dl (31.0-35.0); Mean Corpuscular Hemoglobin 28.8 pg (27.0-33.0); Mean Corpuscular Volume 88.7 fL (80.0-98.0); Mean Platelet Volume 9.5 fL (9.4-12.3); Monocytes Absolute Auto 0.4 X10*3/uL (0.1-1.2); Monocytes Percent Auto 5.9 % (2-11); Neutrophils Absolute Auto 4.8 x10*3/uL (2.0-8.3); Platelet Count 344 X10*3/uL (160-400); Red Blood Count 3.79 X10*6/uL (4.20-5.50); Red Cell Distribution Width 13.1 % (11.0-16.0); White Blood Count 7.3 X10*3/uL (4.8-10.8)
[2021-12-19] MEDS: 0.9 % Sodium Chloride 1,000 ML 999 ML IV (02:20)
[2021-12-19] MEDS: Famotidine/PF 20 MG/2 ML VIAL IVPUSH (02:23)
[2021-12-19 02:44] LABS: Alanine Aminotransferase 10 U/L (0-31); Albumin Level 3.6 g/dL (3.5-5.0); Alkaline Phosphatase 63 U/L (39-117); Anion Gap 17 (12-20); Aspartate Amino Transferase 18 U/L (5-31); Bilirubin Total < 0.2 mg/dL (0.0-1.0); Blood Urea Nitrogen 13 mg/dL (9-16); Calcium 8.5 mg/dL (8.4-10.2); Carbon Dioxide 24 mmol/L (22-29); Chloride 102 mmol/L (96-108); Creatinine Clr Calc Pharmacy 89.8; Estimated Glomerular Filt Rate > 60; Glucose Random 102 mg/dL (60-115); Potassium 3.8 mmol/L (3.3-5.1); Sodium 139 mmol/L (135-145); Total Protein 6.6 g/dL (6.5-8.0)
== END 2021-12-19 04:02 | disposition home or self-care (01) ==
PROVIDERS: Internal Medicine; Emergency Provider Student in an Organized Health Care Education/Training Program; PCP Nurse Practitioner Family
DX: R13.10 Dysphagia, unspecified (principal); E78.5 Hyperlipidemia, unspecified; F17.210 Nicotine dependence, cigarettes, uncomplicated; Z86.718 Personal history of other venous thrombosis and embolism; Z79.01 Long term (current) use of anticoagulants; Z79.899 Other long term (current) drug therapy
CPT/HCPCS: 36415; 71250; 80053; 85025; 99283; 99284

== ENCOUNTER 2022-07-05 07:45 | Outpatient (REF) | payer MEDICARE, MEDICAID, SELFPAY ==
--- NOTE | ~2022-07-05 | XR_ITS ---
EXAMINATION: XR SHOULDER, RIGHT CLINICAL INFORMATION: M25.511 - Pain in right shoulder COMPARISON: Right shoulder radiographs 11/01/2018 TECHNIQUE: Right shoulder is imaged in 3 views. FINDINGS: There are interval progressive degenerative changes right acromioclavicular joint. The acromioclavicular alignment is normal. There is no fracture or dislocation or destructive process. There is a borderline spur inferomedial humeral head. The glenohumeral joint shows no narrowing or erosive change. No visible rotator cuff calcifications. Benign linear ossification just inferior to the right glenoid is chronic, not of acute clinical significance. XR/XR shoulder RT min 2V IMPRESSION: -Degenerative changes right acromioclavicular joint, increased since 2019. -No visible rotator cuff calcifications.
== END 2022-07-05 07:46 | disposition home or self-care (01) ==
LOC: HO.HOSX 07:45
PROVIDERS: Visit Provider Physician Assistant
DX: M25.511 Pain in right shoulder (principal); G25.89 Other specified extrapyramidal and movement disorders
CPT/HCPCS: 73030; 99212

== ENCOUNTER 2022-10-31 23:55 | Emergency (ER) | payer MEDICARE, MEDICAID, SELFPAY ==
[2022-10-31 23:58] VITALS: BP 104/75; PULSE 80; O2SAT 100; BMI 21.5
--- NOTE | 2022-11-01 00:02 | ED.OVERDOSE ---
HPI - Overdose General Stated Complaint: overdose Time Seen by Provider: 11/01/22 00:02 Source: patient and EMS Mode of arrival: EMS Limitations: no limitations History of Present Illness HPI Narrative: Patient comes to the emergency room by ambulance. Since that earlier today patient had an overdose? The boyfriend reports to EMS that the patient was found unresponsive, given 4 mg of Narcan and responded immediately. When EMS arrived, patient was already awake, alert, combative. Patient states that she did not use any drugs, only had 1 beer. Patient denies suicidal or homicidal ideation. Patient states that she feels well Related Data Home Medications Medication Instructions Recorded Confirmed buspirone 15 mg tablet 15 mg PO QAM 07/19/20 03/15/21 cetirizine 10 mg tablet 10 mg PO DAILY 07/19/20 03/15/21 clonazepam 1 mg tablet 1 mg PO BEDTIME 07/19/20 03/15/21 prazosin 5 mg capsule 5 mg PO BEDTIME 07/19/20 03/15/21 temazepam 30 mg capsule 30 mg PO DAILY 07/19/20 03/15/21 trazodone 150 mg tablet 150 mg PO BEDTIME PRN Insomnia 07/19/20 03/15/21 zolpidem 10 mg tablet 10 mg PO BEDTIME PRN Insomnia 07/19/20 03/15/21 amitriptyline 25 mg tablet 25 mg PO BEDTIME 10/13/20 03/15/21 nicotine (polacrilex) 2 mg gum 1 ea PO Q2H PRN Smoking Cessation 02/10/21 03/15/21 risperidone 3 mg tablet 1 tab PO BEDTIME 02/10/21 03/15/21 lamotrigine 100 mg tablet 100 mg PO BID 07/05/22 risperidone 1 mg tablet 1 mg PO BEDTIME 07/05/22 Previous Rx's Medication Instructions Recorded Compression socks, small #1 ea 09/07/20 acetaminophen 500 mg tablet 500 mg PO Q6H PRN pain or fever 09/07/20 (Tylenol Extra Strength) #20 tabs bisacodyl 5 mg tablet,delayed 10 mg PO ONCE 1 day #2 tabs 10/13/20 release (Dulcolax (bisacodyl)) polyethylene glycol 3350 17 238 g PO ONCE #238 grams 10/13/20 gram/dose oral powder (Miralax) sennosides 8.6 mg tablet (Natural 8.6 mg PO BEDTIME PRN constipation 10/13/20 Senna Laxative) #30 tabs apixaban 5 mg (74 tabs) tablets in 5 mg PO PER PKG DIR #74 ea 03/15/21 a dose pack meloxicam 15 mg tablet 15 mg PO DAILY 1 month #30 tabs 07/05/22 Allergies Allergy/AdvReac Type Severity Reaction Status Date / Time No Known Allergies Allergy Verified 07/05/22 10:43 Review of Systems Review of Systems: Constitutional : No Weight loss, No Fever, No Chills, No Night Sweats, No Fatigue, No Malaise ENT/Mouth : No Hearing loss, No Ear Pain, No Nasal Congestion, No Sinus Pain, No Hoarseness, No sore throat, No Rhinorrhea, No Swallowing Difficulty Eyes: No Eye Pain, No Swelling, No Redness, No Foreign Body, No Discharge, No Vision Changes Cardiovascular : No Chest Pain, No SOB, No Dyspnea on Exertion, No Orthopnea, No Edema, No Palpitations Respiratory : No Cough, No Sputum, No Wheezing, No Smoke Exposure, No Dyspnea Gastrointestinal : No Nausea, No Vomiting, No Diarrhea, No Constipation, No abdominal Pain, No Hematochezia, No Melena Genitourinary : no irregular bleeding, No Dysuria, No Urinary Frequency, No Hematuria, No Urinary Incontinence, No Urgency, No Flank Pain, No Urinary Flow Changes, No Hesitancy Musculoskeletal : No joint pain, No Myalgias, No Joint Swelling Skin : No Skin Lesions, No rash Neuro : No Weakness, No Numbness, No Paresthesias, No Loss of Consciousness, No Dizziness, No Headache Psych : No Anxiety/Panic, No Depression, No SI/HI/AH/VH, No Social Issues, Heme/Lymph: No Bruising, No Bleeding,No Lymphadenopathy Endocrine : No Polyuria, No Polydipsia, No Temperature Intolerance [facility] Past Medical History Medical History Anxiety Bipolar 1 disorder COVID-19 vaccine series completed Deep vein thrombosis (DVT) of femoral vein of left lower extremity High cholesterol Insomnia Memory loss Osteoarthritis of left knee Seasonal allergies Wears partial dentures Surgical History History of History of left hip replacement History of total left knee replacement Hx of arthroscopic knee surgery Family History Family History Mother No problems noted. Father Pulmonary embolism Family/Other Breast cancer Stroke Social History Social History (Reviewed 07/05/22 @ 10:45 by Niyah Christopher [facility]) Alcohol intake: current Alcohol intake frequency: holidays/special occasions only Alcohol type: wine Patient Tobacco Use Status: Current everyday Tobacco user Tobacco use type: Cigarette Substance Use Type: Crack/Cocaine Current occupational status: disabled Physical Exam Const: Other: Appearance: Alert. Oriented X3. No acute distress. Eyes: Pupils equal, round and reactive to light. ENT: Pharynx normal. Neck: Normal inspection. Neck supple. No lymph nodes noted. No crepitus CVS: Normal heart rate and rhythm. Pulses normal. Normal S1 and S2 Respiratory: No respiratory distress. Breath sounds normal. No Wheezing. No rales Abdomen: Soft and nontender. No rigidity. No distention. Skin: Skin warm and dry. Normal skin color. Normal skin turgor. Extremities: No lower extremity edema. No Lacerations. No Rash Neuro: Oriented X 3. No motor deficit. No sensory deficit. Moving all extremities. No slurred speech. CN 2 through 12 grossly intact Psych: Screaming and yelling, angry Medical Decision Making Medical Decision Making MDM Narrative: -per EMS history commas seems that the patient had an overdose, patient responded well to Narcan. -patient denies using drugs. -patient declined any care. Vital stables, patient alert and oriented x3, ambulatory with steady normal gait unassisted. -patient requested to be discharged Differential Diagnosis Differential Diagnoses: The differential diagnosis associated with the presentation includes (Accidental overdose, intoxication, substance abuse) Discharge Plan Discharge Clinical Impression: Overdose Patient Disposition: Home, Self-Care Instructions: Adult Overdose (ED) Additional Instructions: Please follow-up with your primary care physician tomorrow. If you have any worsening or new symptoms, please return to the emergency room or call 911 Prescriptions: No Action acetaminophen [Tylenol Extra Strength] 500 mg tablet 500 mg PO Q6H PRN (Reason: pain or fever) Qty: 20 0RF (DME) Compression socks, small Misc See Rx Instructions .ROUTE .MEDSUPPLY Qty: 1 0RF Rx Instructions: As directed nicotine (polacrilex) 2 mg gum 1 ea PO Q2H PRN (Reason: Smoking Cessation) risperidone 3 mg tablet 1 tab PO BEDTIME apixaban 5 mg (74 tabs) tablets,dose pack 5 mg PO PER PKG DIR Qty: 74 0RF Rx Instructions: Take 2 tablets (10 mg) twice daily for 7 days; followed by 1 tablet (5 mg) twice daily buspirone 15 mg tablet 15 mg PO QAM cetirizine 10 mg tablet 10 mg PO DAILY zolpidem 10 mg tablet 10 mg PO BEDTIME PRN (Reason: Insomnia) trazodone 150 mg tablet 150 mg PO BEDTIME PRN (Reason: Insomnia) clonazepam 1 mg tablet 1 mg PO BEDTIME temazepam 30 mg capsule 30 mg PO DAILY prazosin 5 mg capsule 5 mg PO BEDTIME amitriptyline 25 mg tablet 25 mg PO BEDTIME bisacodyl [Dulcolax (bisacodyl)] 5 mg tablet,delayed release (DR/EC) 10 mg PO ONCE 1 Days Qty: 2 0RF Rx Instructions: take 2 tabs at noon the day before your colonoscopy sennosides [Natural Senna Laxative] 8.6 mg tablet 8.6 mg PO BEDTIME PRN (Reason: constipation) Qty: 30 1RF polyethylene glycol 3350 [Miralax] 17 gram/dose powder 238 g PO ONCE Qty: 238 0RF Rx Instructions: As directed by gastroenterology department at [facility] risperidone 1 mg tablet 1 mg PO BEDTIME lamotrigine 100 mg tablet 100 mg PO BID meloxicam 15 mg tablet 15 mg PO DAILY 30 Days Qty: 30 3RF
--- NOTE | 2022-11-01 00:04 | PC.NURSE ---
On arrival, pt had rapid assessment by MD Aquino. pt demanded to leave, pt determined to be clinically sober and stable. pt D/C by provider.
--- NOTE | 2022-11-01 00:05 | PC.NURSE ---
Pt evaluated by MD Aquino prior to requesting to leave the ED.
[2022-11-01 00:45] VITALS: BP 97/54; PULSE 64; RESP 18; TEMP 36.9; O2SAT 98
== END 2022-11-01 00:11 | disposition home or self-care (01) ==
PROVIDERS: Emergency Provider Emergency Medicine
DX: R40.4 Transient alteration of awareness (principal); T50.901A Poisoning by unspecified drugs, medicaments and biological substances, accidental (unintentional), initial encounter; Y92.410 Unspecified street and highway as the place of occurrence of the external cause; E78.5 Hyperlipidemia, unspecified; F17.210 Nicotine dependence, cigarettes, uncomplicated; Z86.718 Personal history of other venous thrombosis and embolism; Z79.899 Other long term (current) drug therapy; Z79.01 Long term (current) use of anticoagulants
CPT/HCPCS: 99282

== ENCOUNTER 2022-11-07 10:53 | Outpatient (REF) | payer MEDICARE, MEDICAID, SELFPAY ==
[2022-11-07 13:15] LABS: MANUAL DIFF FLAG NO
[2022-11-07 13:30] LABS: Basophils Percent Auto 0.5 % (0-2); Eosinophils Absolute Auto 0.2 X10*3/uL (0.0-0.4); Eosinophils Percent Auto 2.8 % (0-4); Hematocrit 37.3 % (37.0-47.0); Hemoglobin 11.8 g/dl (12.0-16.0); Imm Gran Abs Auto 0.02 X10*3/uL (0.00-0.03); Imm Gran Pct Auto 0.3 % (0.0-0.4); Lymphocytes Absolute Auto 0.8 X10*3/uL (1.2-4.9); Lymphocytes Percent Auto 12.5 % (20-40); Mean Corpuscular HGB Conc 31.6 g/dl (31.0-35.0); Mean Corpuscular Hemoglobin 28.7 pg (27.0-33.0); Mean Corpuscular Volume 90.8 fL (80.0-98.0); Mean Platelet Volume 9.7 fL (9.4-12.3); Monocytes Absolute Auto 0.4 X10*3/uL (0.1-1.2); Neutrophils Absolute Auto 4.6 x10*3/uL (2.0-8.3); Neutrophils Percent Auto 76.9 % (45-73); Platelet Count 278 X10*3/uL (160-400); Red Blood Count 4.11 X10*6/uL (4.20-5.50); Red Cell Distribution Width 13.2 % (11.0-16.0)
[2022-11-07 14:11] LABS: Cholesterol 133 mg/dL; HDL Cholesterol 48 mg/dL; LDL Cholesterol Calculated 76 mg/dl; Triglycerides 48 mg/dL
[2022-11-07 14:14] LABS: Alanine Aminotransferase 46 U/L (0-31); Albumin Level 3.6 g/dL (3.5-5.0); Anion Gap 9 (12-20); Aspartate Amino Transferase 56 U/L (5-31); Bilirubin Total 0.3 mg/dL (0.0-1.0); Blood Urea Nitrogen 11 mg/dL (9-16); Carbon Dioxide 28 mmol/L (22-29); Chloride 106 mmol/L (96-108); Estimated Glomerular Filt Rate > 60; Glucose Random 91 mg/dL (60-115); Potassium 3.9 mmol/L (3.3-5.1); Sodium 139 mmol/L (135-145); Total Protein 7.2 g/dL (6.5-8.0)
[2022-11-07 14:18] LABS: TSH reflex Free T4 0.41 uIU/mL (0.32-4.0)
[2022-11-07 14:40] LABS: Reflex LDLD? No
[2022-11-07 14:49] LABS: Alkaline Phosphatase 85 U/L (39-117)
[2022-11-08 08:29] LABS: ~HepC Num1 5.32 S/CO (0.00-0.79); ~Hepatitis C Antibody Reactive (Nonreactive)
[2022-11-08 08:39] LABS: HBc Num1 6.67 S/CO (0.00-0.79); HBsAGNum1 0.43 S/CO (0.00-0.99); Hepatitis B Surface Antigen Negative (Negative); ~Hepatitis B Surface Antibody REACTIVE (Nonreactive)
[2022-11-08 08:58] LABS: Syphilis Screen Reactive (Nonreactive)
[2022-11-08 10:12] LABS: HBc Num2 6.58 S/CO; Hepatitis B Core Antibody Reactive (Nonreactive)
[2022-11-08 10:53] LABS: HIV AB/AG Reactive (Nonreactive); HIV Num 3 388.64 S/CO
[2022-11-14 16:10] LABS: RPR Quantitative Non-Reactive (Nonreactive)
[2022-11-14 16:11] LABS: T.Pallidum Particle Agg Test Reactive (Nonreactive)
[2022-12-15 08:40] LABS: HIV 2 Antibody NEGATIVE
[2022-12-15 08:41] LABS: HIV 1 Antibody POSITIVE (Abnormal)
== END 2022-11-07 10:54 | disposition home or self-care (01) ==
LOC: HO.HHCL 10:53
PROVIDERS: Visit Provider Family Medicine
DX: R63.4 Abnormal weight loss (principal); E78.5 Hyperlipidemia, unspecified
CPT/HCPCS: 36415; 80053; 80061; 84443; 85025; 86592; 86701; 86702; 86704; 86706; 86780; 86803; 87340; 87389; 87522

== ENCOUNTER 2022-11-07 11:39 | Outpatient (REF) | payer MEDICARE, MEDICAID, SELFPAY ==
--- NOTE | ~2022-11-07 | XR_ITS ---
EXAMINATION: XR RIBS, RIGHT, PA CHEST CLINICAL INFORMATION: Weight loss, left-sided rib pain, history of tobacco use. Rib injury 2 weeks ago. COMPARISON: None available. TECHNIQUE: 3 views of the right ribs were obtained along with a PA view of the chest. FINDINGS: Lungs are clear. No consolidation, pneumothorax, or pleural effusion. The cardiomediastinal silhouette and pulmonary vasculature are normal. There is an acute appearing, mildly displaced posterolateral left ninth rib fracture. No fractures are identified. XR/XR ribs LT 2V IMPRESSION: 1. No acute cardiopulmonary process. 2. Acute, mildly displaced posterolateral left ninth rib fracture.
--- NOTE | ~2022-11-07 | XR_ITS ---
EXAMINATION: XR RIBS, RIGHT, PA CHEST CLINICAL INFORMATION: Weight loss, left-sided rib pain, history of tobacco use. Rib injury 2 weeks ago. COMPARISON: None available. TECHNIQUE: 3 views of the right ribs were obtained along with a PA view of the chest. FINDINGS: Lungs are clear. No consolidation, pneumothorax, or pleural effusion. The cardiomediastinal silhouette and pulmonary vasculature are normal. There is an acute appearing, mildly displaced posterolateral left ninth rib fracture. No fractures are identified. XR/XR chest 2V IMPRESSION: 1. No acute cardiopulmonary process. 2. Acute, mildly displaced posterolateral left ninth rib fracture.
== END 2022-11-07 11:40 | disposition home or self-care (01) ==
LOC: HO.HHCX 11:39
PROVIDERS: Visit Provider Family Medicine
DX: R07.81 Pleurodynia (principal); R63.4 Abnormal weight loss; Z72.0 Tobacco use
CPT/HCPCS: 71046; 71100

== ENCOUNTER 2022-11-24 12:17 | Outpatient (REF) | payer MEDICARE, MEDICAID, SELFPAY ==
[2022-11-24 14:20] LABS: INTERNATIONAL NORM RATIO 0.9 (0.9-1.1); Prothrombin Time 10.8 SEC (11.1-13.3)
[2022-11-24 18:39] LABS: CT PCR NOT DETECTED (Not Detect.); NG PCR NOT DETECTED (Not Detect.)
[2022-11-25 04:12] LABS: Hepatitis A Antibody IgG REACTIVE (Nonreactive); ~Hepatitis A Antibody IgG 4.23 S/CO (0.00-0.99)
[2022-11-27 13:18] LABS: Immunoglobulin G 1988 mg/dL (600-1640)
[2022-11-27 20:58] LABS: TS Negative Control Passed; TS Panel A 0; TS Panel B 0; TS Positive Control Passed; TSpotTB Negative (Negative)
[2022-11-28 06:34] LABS: Toxoplasma IgG Antibody 7.38 IU/mL; Toxoplasma IgM Antibody <8.00 AU/mL
[2022-11-28 10:32] LABS: Mumps Virus IgG Antibody >300.00 AU/mL
[2022-11-28 14:07] LABS: HIV RNA PCR Qn Copies 128000 copies/mL (NOT DETECTED); HIV RNA PCR Qn Log Copies 5.11 (NOT DETECTED)
[2022-11-29 16:43] LABS: FIB-ALT 34 U/L (6-29); FIB-Alpha-2-Macroglobulin 230 mg/dL (106-279); FIB-Apolipoprotein A1 201 mg/dL (101-198); FIB-GGT 66 U/L (3-70); FIB-Haptoglobin 191 mg/dL (43-212); FIB-Total Bilirubin 0.3 mg/dL (0.2-1.2); Liver Fibrosis Score 0.12; Liver Fibrosis Stage F0; Nec Inflam Act Grade A0; Nec Inflam Act Score 0.14
[2022-11-30 13:34] LABS: Glucose-6-Phosphate Dehydrogen 15.9 U/g Hgb (7.0-20.5)
[2022-11-30 13:53] LABS: HLA B 5701 Negative
[2022-12-02 12:38] LABS: Hepatitis C Genotype 1a
== END 2022-11-24 12:18 | disposition home or self-care (01) ==
LOC: HO.HHCL 12:17
PROVIDERS: Visit Provider Family Medicine
DX: B20 Human immunodeficiency virus [HIV] disease (principal); B18.2 Chronic viral hepatitis C
CPT/HCPCS: 0353U; 36415; 81381; 81596; 82784; 82955; 85610; 86481; 86708; 86735; 86762; 86765; 86777; 86778; 87536; 87902

== ENCOUNTER 2022-12-12 12:49 | Outpatient (REF) | payer MEDICARE, MEDICAID, SELFPAY ==
[2022-12-13 11:13] LABS: Absolute CD3 Count 893 cells/uL (840-3060); Absolute CD4 Count 368 cells/uL (490-1740); Absolute CD8 Count 503 cells/uL (180-1170); Absolute Lymphocytes 1114 cells/uL (850-3900); CD4 CD8 Ratio 0.73 (0.86-5.00); Percent CD3 Cells 80 % (57-85); Percent CD4 Cells 33 % (30-61); Percent CD8 Cells 45 % (12-42)
[2022-12-14 13:54] LABS: RPR Rapid Plasma Reagin NON-REACTIVE (NON-REACTIVE)
== END 2022-12-12 12:50 | disposition home or self-care (01) ==
LOC: HO.HHCL 12:49
PROVIDERS: Visit Provider Family Medicine
DX: A53.9 Syphilis, unspecified (principal); Z21 Asymptomatic human immunodeficiency virus [HIV] infection status
CPT/HCPCS: 36415; 86359; 86360; 86592; 87900; 87901; 87906

== ENCOUNTER 2022-12-12 13:05 | Outpatient (REF) | payer MEDICARE, MEDICAID, SELFPAY ==
--- NOTE | ~2022-12-12 | XR_ITS ---
EXAMINATION: Left foot and ankle x-ray CLINICAL INFORMATION: Fall COMPARISON: None. TECHNIQUE: 3 views of the left foot and 3 views of the left ankle FINDINGS: Left foot: Bone alignment is normal. No fracture or dislocation. Arthritis at the IP joint and MTP joint of the great toe with joint space narrowing and osteophyte formation. Question cyst or erosion of the lateral fifth metatarsal head. Accessory ossicle adjacent to the medial navicular bone. Plantar calcaneal spur. Normal soft tissues. Left ankle: Bone alignment is normal. No fracture or dislocation. Normal ankle mortise. Normal soft tissues. XR/XR foot LT min 3V IMPRESSION: Left foot: No fracture or dislocation. Degenerative changes of the great toe. Question cyst or erosive change of the lateral fifth metatarsal head. Plantar calcaneal spur. Left ankle: Unremarkable exam
--- NOTE | ~2022-12-12 | XR_ITS ---
EXAMINATION: Left foot and ankle x-ray CLINICAL INFORMATION: Fall COMPARISON: None. TECHNIQUE: 3 views of the left foot and 3 views of the left ankle FINDINGS: Left foot: Bone alignment is normal. No fracture or dislocation. Arthritis at the IP joint and MTP joint of the great toe with joint space narrowing and osteophyte formation. Question cyst or erosion of the lateral fifth metatarsal head. Accessory ossicle adjacent to the medial navicular bone. Plantar calcaneal spur. Normal soft tissues. Left ankle: Bone alignment is normal. No fracture or dislocation. Normal ankle mortise. Normal soft tissues. XR/XR ankle LT min 3V IMPRESSION: Left foot: No fracture or dislocation. Degenerative changes of the great toe. Question cyst or erosive change of the lateral fifth metatarsal head. Plantar calcaneal spur. Left ankle: Unremarkable exam
--- NOTE | ~2022-12-12 | XR_ITS ---
EXAMINATION: XR KNEE, RIGHT CLINICAL INFORMATION: Pain. Fall. COMPARISON: None available. TECHNIQUE: Four views of the right knee. FINDINGS: There is a right knee replacement in satisfactory position. No fracture, dislocation or x-ray evidence of loosening. Small joint effusion. XR/XR knee RT 4V IMPRESSION: Satisfactory appearance of right knee replacement.
[2022-12-15 21:59] LABS: HPV mRNA E6/E7 rflx Not Detected (Not Detected)
== END 2022-12-12 13:06 | disposition home or self-care (01) ==
LOC: HO.HHCX 13:05
PROVIDERS: Visit Provider Family Medicine
DX: M79.672 Pain in left foot (principal); M25.572 Pain in left ankle and joints of left foot; M25.561 Pain in right knee; Z91.81 History of falling
CPT/HCPCS: 73564; 73610; 73630; 87624; 88142

== ENCOUNTER 2023-03-02 11:48 | Outpatient (REF) | payer MEDICARE, MEDICAID, SELFPAY ==
[2023-03-02 13:35] LABS: MANUAL DIFF FLAG NO
[2023-03-02 13:38] LABS: Basophils Absolute Auto 0.1 X10*3/uL (0.0-0.2); Basophils Percent Auto 1.2 % (0-2); Eosinophils Absolute Auto 0.2 X10*3/uL (0.0-0.4); Eosinophils Percent Auto 4.3 % (0-4); Hematocrit 38.4 % (37.0-47.0); Hemoglobin 12.4 g/dl (12.0-16.0); Imm Gran Abs Auto 0.01 X10*3/uL (0.00-0.03); Imm Gran Pct Auto 0.2 % (0.0-0.4); Lymphocytes Absolute Auto 1.6 X10*3/uL (1.2-4.9); Mean Corpuscular HGB Conc 32.3 g/dl (31.0-35.0); Mean Corpuscular Hemoglobin 28.5 pg (27.0-33.0); Mean Corpuscular Volume 88.3 fL (80.0-98.0); Mean Platelet Volume 10.3 fL (9.4-12.3); Monocytes Absolute Auto 0.5 X10*3/uL (0.1-1.2); Neutrophils Absolute Auto 2.6 x10*3/uL (2.0-8.3); Neutrophils Percent Auto 52.3 % (45-73); Platelet Count 310 X10*3/uL (160-400); Red Blood Count 4.35 X10*6/uL (4.20-5.50); Red Cell Distribution Width 13.6 % (11.0-16.0); White Blood Count 4.9 X10*3/uL (4.8-10.8)
[2023-03-02 14:15] LABS: Alanine Aminotransferase 81 U/L (0-31); Albumin Level 3.8 g/dL (3.5-5.0); Alkaline Phosphatase 89 U/L (39-117); Anion Gap 13 (12-20); Aspartate Amino Transferase 102 U/L (5-31); Bilirubin Total 0.3 mg/dL (0.0-1.0); Blood Urea Nitrogen 18 mg/dL (9-16); Calcium 9.2 mg/dL (8.4-10.2); Carbon Dioxide 27 mmol/L (22-29); Chloride 103 mmol/L (96-108); Estimated Glomerular Filt Rate > 60; Glucose Random 93 mg/dL (60-115); Potassium 4.8 mmol/L (3.3-5.1); Sodium 138 mmol/L (135-145); Total Protein 7.7 g/dL (6.5-8.0)
[2023-03-05 14:34] LABS: HIV RNA PCR Qn Copies 74 copies/mL (NOT DETECTED); HIV RNA PCR Qn Log Copies 1.87 (NOT DETECTED)
== END 2023-03-02 11:49 | disposition home or self-care (01) ==
LOC: HO.HHCL 11:48
PROVIDERS: Visit Provider Student in an Organized Health Care Education/Training Program
DX: B20 Human immunodeficiency virus [HIV] disease (principal)
CPT/HCPCS: 36415; 80053; 85025; 87536

== ENCOUNTER 2023-05-07 10:43 | Outpatient (REF) | payer MEDICARE, SELFPAY ==
[2023-05-07 13:21] LABS: MANUAL DIFF FLAG NO
[2023-05-07 13:22] LABS: Basophils Absolute Auto 0.1 X10*3/uL (0.0-0.2); Basophils Percent Auto 0.6 % (0-2); Eosinophils Absolute Auto 0.2 X10*3/uL (0.0-0.4); Eosinophils Percent Auto 2.5 % (0-4); Hematocrit 40.8 % (37.0-47.0); Hemoglobin 13.2 g/dl (12.0-16.0); Imm Gran Abs Auto 0.02 X10*3/uL (0.00-0.03); Imm Gran Pct Auto 0.3 % (0.0-0.4); Lymphocytes Absolute Auto 1.4 X10*3/uL (1.2-4.9); Lymphocytes Percent Auto 17.8 % (20-40); Mean Corpuscular HGB Conc 32.4 g/dl (31.0-35.0); Mean Corpuscular Hemoglobin 28.5 pg (27.0-33.0); Mean Corpuscular Volume 88.1 fL (80.0-98.0); Mean Platelet Volume 9.7 fL (9.4-12.3); Monocytes Absolute Auto 0.2 X10*3/uL (0.1-1.2); Monocytes Percent Auto 2.2 % (2-11); Neutrophils Absolute Auto 5.9 x10*3/uL (2.0-8.3); Neutrophils Percent Auto 76.6 % (45-73); Platelet Count 374 X10*3/uL (160-400); Red Blood Count 4.63 X10*6/uL (4.20-5.50); Red Cell Distribution Width 14.2 % (11.0-16.0); White Blood Count 7.7 X10*3/uL (4.8-10.8)
[2023-05-07 13:40] LABS: Alanine Aminotransferase 41 U/L (0-31); Alkaline Phosphatase 84 U/L (39-117); Anion Gap 12 (12-20); Aspartate Amino Transferase 44 U/L (5-31); Bilirubin Total 0.4 mg/dL (0.0-1.0); Blood Urea Nitrogen 13 mg/dL (9-16); Calcium 9.4 mg/dL (8.4-10.2); Carbon Dioxide 30 mmol/L (22-29); Chloride 104 mmol/L (96-108); Estimated Glomerular Filt Rate > 60; Glucose Random 92 mg/dL (60-115); Potassium 4.3 mmol/L (3.3-5.1); Sodium 142 mmol/L (135-145); Total Protein 7.8 g/dL (6.5-8.0)
[2023-05-08 17:49] LABS: Cytomegalovirus Ab IgG >10.00 U/mL; Cytomegalovirus Ab IgM <30.00 AU/mL
[2023-05-10 15:39] LABS: HIV RNA PCR Qn Copies 22 copies/mL (NOT DETECTED); HIV RNA PCR Qn Log Copies 1.34 (NOT DETECTED)
== END 2023-05-07 10:44 | disposition home or self-care (01) ==
LOC: HO.HHCL 10:43
PROVIDERS: Visit Provider Student in an Organized Health Care Education/Training Program
DX: B20 Human immunodeficiency virus [HIV] disease (principal)
CPT/HCPCS: 36415; 80053; 85025; 86644; 86645; 87536

== ENCOUNTER 2023-05-22 13:37 | Outpatient (REF) | payer MEDICARE, MEDICAID, SELFPAY ==
--- NOTE | ~2023-05-22 | XR_ITS ---
EXAMINATION: XR FOOT, LEFT CLINICAL INFORMATION: Pain and swelling. COMPARISON: Radiographs dated 12/13/2022. TECHNIQUE: AP, lateral, and oblique views of the left foot. FINDINGS: Bony alignment and mineralization are normal. No acute fracture, dislocation or left ankle joint effusion is seen. Boehler's angle is normal. There is a small plantar calcaneal spur. There is marked osteoarthritic change of the first metatarsophalangeal joint. There is mild bunion formation of the first metatarsal head. There is osteoarthritic change of the interphalangeal joint of the left great toe, with well-corticated chronic fracture fragment arising from the medial aspect of the distal articular surface of the proximal phalanx. There is stable bony erosive change of the lateral margin of the fifth metatarsal head. No soft tissue gas or foreign body is seen. XR/XR foot LT min 3V IMPRESSION: 1. No acute fracture, dislocation or left ankle joint effusion is seen. 2. There is a small plantar calcaneal spur. 3. There is marked osteoarthritic change of the left first metatarsophalangeal joint, and moderate degenerative change is seen of the interphalangeal joint of the left great toe, with small periarticular fracture fragment. 4. There is mild bunion formation of the left first metatarsal head. 5. There is stable chronic erosion at the lateral margin of the left fifth metatarsal head.
--- NOTE | ~2023-05-22 | XR_ITS ---
EXAMINATION: XR SHOULDER, RIGHT CLINICAL INFORMATION: Right shoulder and upper arm pain. COMPARISON: None available. TECHNIQUE: AP external rotation, Grashey, scapular Y, and axillary views of the right shoulder. FINDINGS: There is bony demineralization. The glenohumeral joint is intact, with cephalad subluxation of the humeral head relative to the glenoid and narrowing of the rotator cuff interval. There is very mild osteoarthritic change of the glenohumeral joint. There is a distal acromial undersurface osteophyte, and there is cortical irregularity of the greater tuberosity of the proximal right humerus. The acromioclavicular and coracoclavicular intervals are normal. There is moderately severe osteoarthritic change of the acromioclavicular joint. No soft tissue calcification or foreign body is seen. There is no right pneumothorax. XR/XR shoulder RT min 2V IMPRESSION: 1. There is mild osteoarthritic change of the right glenohumeral joint, and moderately severe osteoarthritic change is seen of the right acromioclavicular joint. 2. Findings are consistent with right rotator cuff impingement.
[2023-05-22 16:23] LABS: MANUAL DIFF FLAG NO
[2023-05-22 16:30] LABS: Basophils Absolute Auto 0.1 X10*3/uL (0.0-0.2); Basophils Percent Auto 1.1 % (0-2); Eosinophils Absolute Auto 0.2 X10*3/uL (0.0-0.4); Eosinophils Percent Auto 2.7 % (0-4); Hematocrit 36.7 % (37.0-47.0); Hemoglobin 11.9 g/dl (12.0-16.0); Imm Gran Abs Auto 0.02 X10*3/uL (0.00-0.03); Imm Gran Pct Auto 0.3 % (0.0-0.4); Lymphocytes Absolute Auto 2.2 X10*3/uL (1.2-4.9); Lymphocytes Percent Auto 30.3 % (20-40); Mean Corpuscular HGB Conc 32.4 g/dl (31.0-35.0); Mean Corpuscular Hemoglobin 28.6 pg (27.0-33.0); Mean Corpuscular Volume 88.2 fL (80.0-98.0); Mean Platelet Volume 9.5 fL (9.4-12.3); Monocytes Absolute Auto 0.6 X10*3/uL (0.1-1.2); Monocytes Percent Auto 7.6 % (2-11); Neutrophils Absolute Auto 4.3 x10*3/uL (2.0-8.3); Platelet Count 370 X10*3/uL (160-400); Red Blood Count 4.16 X10*6/uL (4.20-5.50); Red Cell Distribution Width 14.6 % (11.0-16.0); White Blood Count 7.3 X10*3/uL (4.8-10.8)
[2023-05-22 16:59] LABS: C Reactive Protein 0.15 mg/dL (< or = 0.50); Uric Acid 3.5 mg/dL (2.4-5.7)
[2023-05-22 17:05] LABS: Erythrocyte Sedimentation Rate 6 MM/HR (0-20)
== END 2023-05-22 13:38 | disposition home or self-care (01) ==
LOC: HO.HHCL 13:37
PROVIDERS: Visit Provider Family Medicine
DX: M79.672 Pain in left foot (principal); M25.511 Pain in right shoulder; G89.29 Other chronic pain
CPT/HCPCS: 36415; 73030; 73630; 84550; 85025; 85652; 86140

== ENCOUNTER 2023-08-28 00:48 | Emergency (ER) | payer MEDICARE, SELFPAY ==
--- NOTE | ~2023-08-28 | XR_ITS ---
EXAMINATION: XR FOOT, LEFT CLINICAL INFORMATION: Pain. COMPARISON: None available. TECHNIQUE: AP, lateral, and oblique views of the left foot. FINDINGS: The the bony structures are osteopenic. There is moderate first metatarsophalangeal degenerative change with loss of joint space, subchondral sclerosis and osteophyte formation. There is mild medial midfoot degenerative change with mild loss of joint space and subchondral sclerosis. No acute fractures seen. There is soft tissue swelling along the dorsum of the foot. XR/XR foot LT min 3V IMPRESSION: First metatarsophalangeal degenerative change. MID foot degenerative change. Soft tissue swelling.
[2023-08-28 00:58] VITALS: BP 148/90; PULSE 92; O2SAT 98
[2023-08-28 00:59] VITALS: BP 147/86; PULSE 87; RESP 16; TEMP 37.2; O2SAT 98; BMI 18.8
--- NOTE | 2023-08-28 01:02 | MHC.EDTECH ---
Patient came in by EMS,security called to assist with changeover,patient changed into hospital attire,all belongings placed in [facility] ROOM.
--- NOTE | 2023-08-28 01:37 | ED_ITS ---
HPI - Overdose General Chief Complaint: Overdose Stated Complaint: od Time Seen by Provider: 08/28/23 01:03 Source: patient Mode of arrival: ambulatory Limitations: no limitations History of Present Illness HPI Narrative: 57 yo female with PMH of DVT, arthritis, chronic pain states she sniffed a little bit of heroin tonight and to feel better and overdosed on accident. No SI. PD administered narcan. EMS arrived she was alert and oriented. She c/o her chronic pain in L foot that she has been having. Does not have narcan at home complaint: accidental overdose Onset (ago): minute(s) Context: Accidental Overdose: wanted to get high (pain control) Treatments Prior to Arrival: narcan Related Data Home Medications ?Medication ?Instructions ?Recorded ?Confirmed buspirone 15 mg tablet 15 mg PO QAM 07/19/20 03/15/21 cetirizine 10 mg tablet 10 mg PO DAILY 07/19/20 03/15/21 clonazepam 1 mg tablet 1 mg PO BEDTIME 07/19/20 03/15/21 prazosin 5 mg capsule 5 mg PO BEDTIME 07/19/20 03/15/21 temazepam 30 mg capsule 30 mg PO DAILY 07/19/20 03/15/21 trazodone 150 mg tablet 150 mg PO BEDTIME PRN Insomnia 07/19/20 03/15/21 zolpidem 10 mg tablet 10 mg PO BEDTIME PRN Insomnia 07/19/20 03/15/21 amitriptyline 25 mg tablet 25 mg PO BEDTIME 10/13/20 03/15/21 nicotine (polacrilex) 2 mg gum 1 ea PO Q2H PRN Smoking Cessation 02/10/21 03/15/21 risperidone 3 mg tablet 1 tab PO BEDTIME 02/10/21 03/15/21 lamotrigine 100 mg tablet 100 mg PO BID 07/05/22 risperidone 1 mg tablet 1 mg PO BEDTIME 07/05/22 Previous Rx's ?Medication ?Instructions ?Recorded Compression socks, small #1 ea 09/07/20 acetaminophen 500 mg tablet 500 mg PO Q6H PRN pain or fever 09/07/20 (Tylenol Extra Strength) #20 tabs bisacodyl 5 mg tablet,delayed 10 mg (2 x 5 mg) PO ONCE 1 day #2 10/13/20 release (Dulcolax (bisacodyl)) tabs polyethylene glycol 3350 17 238 g PO ONCE #238 grams 10/13/20 gram/dose oral powder (Miralax) sennosides 8.6 mg tablet (Natural 8.6 mg PO BEDTIME PRN constipation 10/13/20 Senna Laxative) #30 tabs apixaban 5 mg (74 tabs) tablets in 5 mg PO PER PKG DIR #74 ea 03/15/21 a dose pack meloxicam 15 mg tablet 15 mg PO DAILY 1 month #30 tabs 07/05/22 Allergies Allergy/AdvReac Type Severity Reaction Status Date / Time No Known Allergies Allergy Verified 08/28/23 01:02 Review of Systems Review of Systems: Constitutional : No Fever, No Chills ENT/Mouth : No Ear Pain, No Hoarseness, No sore throat Eyes: No Eye Pain, No Swelling, No Redness, No Foreign Body Cardiovascular : No Chest Pain, No SOB Respiratory : No Cough, No Dyspnea Gastrointestinal : No Nausea, No Vomiting, No Diarrhea, No abdominal Pain Genitourinary : No Dysuria, No Hematuria Musculoskeletal : positive joint pain, No Myalgias, No Joint Swelling Skin : No Skin lacerations, No rash Neuro : No Weakness, No Numbness, No Loss of Consciousness, No Dizziness, No Headache Psych : No Anxiety/Panic, No Depression Heme/Lymph: no easy bruising, no Lymphadenopathy Endocrine : No Polyuria, No Polydipsia All other systems reviewed and are negative FOR[facility]LY [facility] Past Medical History Source: old records reviewed Medical History Deep vein thrombosis (DVT) of femoral vein of left lower extremity Osteoarthritis of left knee Wears partial dentures Insomnia COVID-19 vaccine series completed Seasonal allergies Memory loss Bipolar 1 disorder High cholesterol Anxiety Surgical History Hx of arthroscopic knee surgery History of History of left hip replacement History of total left knee replacement Family History Family History Mother No problems noted. Father Pulmonary embolism Family/Other Breast cancer Stroke Social History Social History Alcohol intake: current Alcohol intake frequency: holidays/special occasions only Alcohol type: wine Patient Tobacco Use Status: Current everyday Tobacco user Tobacco use type: Cigarette Smoked in Last 30 Days: Yes Substance Use Type: Heroin Advance Directives: No Advance Directives Information Provided: Yes Current occupational status: disabled Physical Exam Vital Signs: Vital Signs: Last Vital Signs Temp 98.9 F 08/28/23 00:59 Pulse 87 08/28/23 00:59 Resp 16 08/28/23 00:59 BP 147/86 H 08/28/23 00:59 Pulse Ox 98 08/28/23 00:59 O2 Del Method Room Air 08/28/23 00:59 BMI result Body Mass Index 18.8 Appearance: Alert. Oriented X3. No acute distress. Has odd affect appears much thinner than her picture and lips and face appear weathered Eyes: Pupils equal, round and reactive to light. ENT: Pharynx normal. atraumatic Neck: Normal inspection. Neck supple. CVS: Normal heart rate and rhythm. Pulses normal. Respiratory: No respiratory distress. Breath sounds normal. Abdomen: Soft and nontender. Skin: Skin warm and dry. Normal skin color. Normal skin turgor. Extremities: No lower extremity edema. L foot dorsum ttp no redness warmth or signs of infection NV intact Neuro: Oriented X 3. No motor deficit. No sensory deficit. Medical Decision Making Medical Decision Making MDM Narrative: 57 yo female with PMH of DVT, arthritis, chronic pain here with c/o accidental heroin overdose after sniffing - at this time no signs of head trauma she is alert and oriented x 3, I am going to repeat foot xray, given narcan to take home. She refused SUDE evaluation or help with detox. Differential Diagnosis Differential Diagnoses: The differential diagnosis associated with the presentation includes opiate use disorder, accidental overdose Admission/Observation Consideration of admission/observation: Escalation of care including adm ission/observation considered will observe until she has been monitored for a couple of hours no need for repeat narcan can be DC Independent Interpretation I performed an independent interpretation of an: Plain X-Ray (no fracture) Radiology Impression Discussion of test interpretation with radiology: I have reviewed the radiologist's reading. Independent Historian Clinical information obtained from an independent historian. History obtained from or confirmed by: EMS External Record Review External record reviewed: Inpatient record Prescription Management I considered prescription management with: Other Social Determinants Patient?s care significantly limited by Social Determinants of Health including: Problems related to primary support group Discharge Plan Discharge Clinical Impression: Drug overdose Qualifiers: Encounter type: initial encounter Injury intent: accidental or unintentional Qualified Code(s): T50.901A - Poisoning by unspecified drugs, medicaments and biological substances, accidental (unintentional), initial encounter Patient Disposition: Home, Self-Care Instructions: Adult Overdose (ED) Additional Instructions: carry narcan with you at all times. you can follow up with comprehensive care clinic sheet handed to you return for any worsening symptoms or concerns heroin is now fentanyl and just a little bit can cause a serious overdose and kill you no broken bone seen on xray today Prescriptions: No Action acetaminophen [Tylenol Extra Strength] 500 mg tablet 500 mg PO Q6H PRN (Reason: pain or fever) Qty: 20 0RF (DME) Compression socks, small Misc See Rx Instructions .ROUTE .MEDSUPPLY Qty: 1 0RF Rx Instructions: As directed nicotine (polacrilex) 2 mg gum 1 ea PO Q2H PRN (Reason: Smoking Cessation) risperidone 3 mg tablet 1 tab PO BEDTIME apixaban 5 mg (74 tabs) tablets,dose pack 5 mg PO PER PKG DIR Qty: 74 0RF Rx Instructions: Take 2 tablets (10 mg) twice daily for 7 days; followed by 1 tablet (5 mg) twice daily buspirone 15 mg tablet 15 mg PO QAM cetirizine 10 mg tablet 10 mg PO DAILY zolpidem 10 mg tablet 10 mg PO BEDTIME PRN (Reason: Insomnia) trazodone 150 mg tablet 150 mg PO BEDTIME PRN (Reason: Insomnia) clonazepam 1 mg tablet 1 mg PO BEDTIME temazepam 30 mg capsule 30 mg PO DAILY prazosin 5 mg capsule 5 mg PO BEDTIME amitriptyline 25 mg tablet 25 mg PO BEDTIME bisacodyl [Dulcolax (bisacodyl)] 5 mg tablet,delayed release (DR/EC) 10 mg PO ONCE 1 Days Qty: 2 0RF Rx Instructions: take 2 tabs at noon the day before your colonoscopy sennosides [Natural Senna Laxative] 8.6 mg tablet 8.6 mg PO BEDTIME PRN (Reason: constipation) Qty: 30 1RF polyethylene glycol 3350 [Miralax] 17 gram/dose powder 238 g PO ONCE Qty: 238 0RF Rx Instructions: As directed by gastroenterology department at [facility] risperidone 1 mg tablet 1 mg PO BEDTIME lamotrigine 100 mg tablet 100 mg PO BID meloxicam 15 mg tablet 15 mg PO DAILY 30 Days Qty: 30 3RF Print Language: Yemeni
[2023-08-28 03:05] VITALS: BP 114/67; PULSE 71; RESP 16; TEMP 37.1; O2SAT 97
[2023-08-28 04:52] VITALS: BP 115/77; PULSE 67; RESP 16; TEMP 36.9; O2SAT 97
[2023-08-28] MEDS: Naloxone HCl Nasal TAKE HOME 4 MG SPRAY 8 MG NOSTRILALT (05:24)
[2023-08-28 05:33] VITALS: BP 115/77; PULSE 67; RESP 16; TEMP 36.9; O2SAT 97
--- NOTE | 2023-08-30 13:52 | MHC.RECOVRN ---
Attempted to call pt for post overdose follow up, voicemail box full, unable to leave message.
== END 2023-08-28 05:34 | disposition home or self-care (01) ==
PROVIDERS: Emergency Provider Emergency Medicine
DX: T40.1X1A Poisoning by heroin, accidental (unintentional), initial encounter (principal); Y92.9 Unspecified place or not applicable; G89.29 Other chronic pain; M79.672 Pain in left foot; Z86.718 Personal history of other venous thrombosis and embolism; F17.210 Nicotine dependence, cigarettes, uncomplicated
CPT/HCPCS: 73630; 99283; 99284

== ENCOUNTER 2023-09-21 10:46 | Outpatient (REF) | payer MEDICARE, SELFPAY ==
--- NOTE | ~2023-09-21 | XR_ITS ---
EXAMINATION: XR PELVIS CLINICAL INFORMATION: Pain. COMPARISON: Radiograph left hip 02/05/2016. TECHNIQUE: AP view of the pelvis. FINDINGS: Stable appearance of a total left-sided hip arthroplasty. No evidence of hardware fracture or periprosthetic loosening. Mild to moderate degenerative osteoarthritis of the right hip, slightly progressed since 2016 with joint space narrowing and subcortical sclerosis. No acute fractures or subluxation. Pelvic phleboliths are seen. Metallic densities overlying the perineal region project outside of the soft tissues and are likely external to the patient. XR/XR pelvis 1-2V IMPRESSION: 1. No acute fractures or subluxation. 2. Intact left hip arthroplasty. 3. Mild to moderate degenerative osteoarthritis of the right hip, slightly progressed since 2016.
== END 2023-09-21 10:47 | disposition home or self-care (01) ==
LOC: HO.HOSX 10:46
PROVIDERS: Visit Provider Orthopaedic Surgery
DX: M16.11 Unilateral primary osteoarthritis, right hip (principal); M25.561 Pain in right knee; R10.30 Lower abdominal pain, unspecified
CPT/HCPCS: 72170; 99212

== ENCOUNTER 2023-09-21 10:46 | Outpatient (AMB) | payer MEDICARE, SELFPAY ==
--- NOTE | 2023-09-21 11:23 | A.OFFVIS_ITS ---
Intake Visit Reasons: newprob-Right knee pain Intake Note: Sarahy is a 57 year old female who presents to the office today for right knee pain and right groin pain. She states the knee pain started about 2 weeks ago with no known injury. She has had the groin pain off and on for years but it is worsening. She states it is difficult to walk and sleep due to the pain. Pt states she is taking meloxicam and tramadol which is helping with the pain. Allergies No Known Allergies Allergy (Verified 09/21/23 11:24) HPI HPI newprob-Right knee pain: Details: Sarahy is a 57 year old female who presents to the office today for right knee pain and right groin pain. She states this started about 2 weeks ago with no known injury. She states it is difficult to walk and sleep due to the pain. Pt states she is taking meloxicam and tramadol which is helping with the pain. She had a left hip replacement in [place] several years ago. Her complaint now feels similar to how her left hip felt previously. She describes pain with getting into and out of a care. She has been taking meloxicam and acetaminophen and tramadol and trazadone but nothing is helping. She is unable to engage in daily activities without pain. ON LICENSE OF [facility] Medical History Deep vein thrombosis (DVT) of femoral vein of left lower extremity Osteoarthritis of left knee Wears partial dentures Insomnia COVID-19 vaccine series completed Seasonal allergies Memory loss Bipolar 1 disorder High cholesterol Anxiety Surgical History Hx of arthroscopic knee surgery History of History of left hip replacement History of total left knee replacement Family History Mother No problems noted. Father Pulmonary embolism Family/Other Breast cancer Stroke Social History Alcohol intake: current Alcohol intake frequency: holidays/special occasions only Alcohol type: wine Patient Tobacco Use Status: Current everyday Tobacco user Tobacco use type: Cigarette Substance Use Type: Heroin Current occupational status: disabled Physical Exam Extrem Other: + impingment + Stinchfield + gait antalgia + trendelenberg Results Reviewed Results Reviewed: I personally reviewed relevant radiographs. Moderate right hip OA Left SUNITHA in expected post operative position with no hardware complications or evidence of loosening Assessment & Plan Assessment & Plan (1) Primary osteoarthritis of right hip: Code(s): M16.11 - Unilateral primary osteoarthritis, right hip Category: Medical Plan: This is a 57 yo F with right hip OA. She has a history of left SUNITHA many years ago and her right hip has become unbearable over the past year. Her right knee has started to bother her more recently as well. Her exam is notable for hip pain and loss of motion. She walks with a limp and home exercises and NSAIDs have not helped. I recommend right SUNITHA. I discussed the risks benefits and alternatives including but not limited to the risk of pain, infection, stiffness, fracture, dislocation, leg length discrepancy and well as the need fo r further surgery as well as potential medical complications such as blood clots, pulmonary embolism and cardiac complications. She had a successful left SUNITHA and understands these risks. We also discussed injections but she does not want these. She has a history of DVT and is on blood thinners. We will obtain medical clearance and she will meet with our nurse navigator. Orders: Orders XR pelvis 1-2V Today M25.559 - Pain in unspecified hip Coding Level of Care Code Est Pt Level 4 (44236) Diagnoses Primary osteoarthritis of right hip M16.11
== END 2023-09-21 12:37 | disposition home or self-care (01) ==
PROVIDERS: Visit Provider Orthopaedic Surgery
DX: M16.11 Unilateral primary osteoarthritis, right hip (principal)
CPT/HCPCS: 99214

== ENCOUNTER 2023-10-22 11:39 | Outpatient (REF) | payer MEDICARE, SELFPAY ==
[2023-10-22 13:50] LABS: MANUAL DIFF FLAG NO
[2023-10-22 14:06] LABS: Basophils Absolute Auto 0.1 X10*3/uL (0.0-0.2); Eosinophils Absolute Auto 0.1 X10*3/uL (0.0-0.4); Eosinophils Percent Auto 2.9 % (0-4); Hematocrit 39.8 % (37.0-47.0); Hemoglobin 13.1 g/dl (12.0-16.0); INTERNATIONAL NORM RATIO 0.9 (0.9-1.1); Imm Gran Abs Auto 0.02 X10*3/uL (0.00-0.03); Imm Gran Pct Auto 0.4 % (0.0-0.4); Lymphocytes Absolute Auto 1.1 X10*3/uL (1.2-4.9); Lymphocytes Percent Auto 23.8 % (20-40); Mean Corpuscular HGB Conc 32.9 g/dl (31.0-35.0); Mean Corpuscular Hemoglobin 29.4 pg (27.0-33.0); Mean Corpuscular Volume 89.2 fL (80.0-98.0); Monocytes Absolute Auto 0.3 X10*3/uL (0.1-1.2); Monocytes Percent Auto 7.1 % (2-11); Neutrophils Absolute Auto 3.1 x10*3/uL (2.0-8.3); Neutrophils Percent Auto 64.8 % (45-73); Platelet Count 285 X10*3/uL (160-400); Prothrombin Time 10.7 SEC (11.1-13.3); Red Blood Count 4.46 X10*6/uL (4.20-5.50); Red Cell Distribution Width 13.8 % (11.0-16.0); White Blood Count 4.8 X10*3/uL (4.8-10.8)
[2023-10-22 14:09] LABS: Partial Thromboplastin Time 31.6 SEC (26.0-36.8)
[2023-10-22 15:04] LABS: Alanine Aminotransferase 51 U/L (0-31); Albumin Level 3.5 g/dL (3.5-5.0); Alkaline Phosphatase 82 U/L (39-117); Anion Gap 10 (12-20); Aspartate Amino Transferase 59 U/L (5-31); Bilirubin Total 0.2 mg/dL (0.0-1.0); Blood Urea Nitrogen 14 mg/dL (9-16); Calcium 8.8 mg/dL (8.4-10.2); Carbon Dioxide 25 mmol/L (22-29); Chloride 110 mmol/L (96-108); Estimated Glomerular Filt Rate > 60; Glucose Random 99 mg/dL (60-115); Potassium 3.5 mmol/L (3.3-5.1); Sodium 141 mmol/L (135-145); Total Protein 6.9 g/dL (6.5-8.0)
[2023-10-23 14:09] LABS: HIV RNA PCR Qn Copies <20 DETECTED copies/mL (NOT DETECTED); HIV RNA PCR Qn Log Copies <1.30 DETECTED (NOT DETECTED)
[2023-10-23 17:38] LABS: Cytomegalovirus Ab IgG >10.00 U/mL; Cytomegalovirus Ab IgM <30.00 AU/mL
[2023-10-24 06:38] LABS: RPR Rapid Plasma Reagin NON-REACTIVE (NON-REACTIVE)
[2023-10-24 11:18] LABS: HCV Log PCR 5.51 Log IU/mL (NOT DETECTED); HepC Viral Load 326000 IU/mL (NOT DETECTED)
[2023-10-25 18:30] LABS: Absolute CD3 Count 803 cells/uL (840-3060); Absolute CD4 Count 515 cells/uL (490-1740); Absolute CD8 Count 289 cells/uL (180-1170); Absolute Lymphocytes 1038 cells/uL (850-3900); CD4 CD8 Ratio 1.78 (0.86-5.00); Percent CD3 Cells 77 % (57-85); Percent CD4 Cells 50 % (30-61); Percent CD8 Cells 28 % (12-42)
[2023-11-01 18:18] LABS: FIB-ALT 41 U/L (6-29); FIB-Alpha-2-Macroglobulin 200 mg/dL (106-279); FIB-Apolipoprotein A1 186 mg/dL (101-198); FIB-GGT 26 U/L (3-70); FIB-Haptoglobin 41 mg/dL (43-212); FIB-Total Bilirubin 0.2 mg/dL (0.2-1.2); Liver Fibrosis Score 0.13; Liver Fibrosis Stage F0; Nec Inflam Act Grade A0-A1; Nec Inflam Act Score 0.18
== END 2023-10-22 11:40 | disposition home or self-care (01) ==
LOC: HO.HHCL 11:39
PROVIDERS: Visit Provider Student in an Organized Health Care Education/Training Program
DX: B20 Human immunodeficiency virus [HIV] disease (principal); B18.2 Chronic viral hepatitis C
CPT/HCPCS: 36415; 80053; 81596; 85025; 85610; 85730; 86359; 86360; 86592; 86644; 86645; 87522; 87536

== ENCOUNTER 2024-04-28 09:53 | Outpatient (REF) | payer MEDICARE, SELFPAY ==
[2024-04-28 11:04] LABS: MANUAL DIFF FLAG NO
[2024-04-28 11:21] LABS: Basophils Percent Auto 0.8 % (0-2); Eosinophils Absolute Auto 0.2 X10*3/uL (0.0-0.4); Eosinophils Percent Auto 4.4 % (0-4); Hematocrit 35.7 % (37.0-47.0); Imm Gran Abs Auto 0.02 X10*3/uL (0.00-0.03); Imm Gran Pct Auto 0.5 % (0.0-0.4); Lymphocytes Absolute Auto 1.4 X10*3/uL (1.2-4.9); Lymphocytes Percent Auto 36.4 % (20-40); Mean Corpuscular HGB Conc 33.6 g/dl (31.0-35.0); Mean Corpuscular Hemoglobin 29.9 pg (27.0-33.0); Mean Platelet Volume 9.9 fL (9.4-12.3); Monocytes Absolute Auto 0.3 X10*3/uL (0.1-1.2); Monocytes Percent Auto 7.5 % (2-11); Neutrophils Percent Auto 50.4 % (45-73); Platelet Count 264 X10*3/uL (160-400); Red Blood Count 4.01 X10*6/uL (4.20-5.50); Red Cell Distribution Width 12.6 % (11.0-16.0); White Blood Count 3.9 X10*3/uL (4.8-10.8)
[2024-04-28 11:54] LABS: Alanine Aminotransferase 14 U/L (0-31); Albumin Level 3.8 g/dL (3.5-5.0); Alkaline Phosphatase 75 U/L (39-117); Anion Gap 8 (12-20); Aspartate Amino Transferase 26 U/L (5-31); Bilirubin Total 0.2 mg/dL (0.0-1.0); Blood Urea Nitrogen 13 mg/dL (9-16); Calcium 8.8 mg/dL (8.4-10.2); Carbon Dioxide 25 mmol/L (22-29); Chloride 112 mmol/L (96-108); Estimated Glomerular Filt Rate > 60; Glucose Random 102 mg/dL (60-115); Potassium 3.3 mmol/L (3.3-5.1); Sodium 142 mmol/L (135-145); Total Protein 7.1 g/dL (6.5-8.0)
[2024-04-29 14:17] LABS: HCV Log PCR <1.18 NOT DETECTED Log IU/mL (NOT DETECTED); HepC Viral Load <15 NOT DETECTED IU/mL (NOT DETECTED)
[2024-04-30 18:03] LABS: HIV RNA PCR Qn Copies 30800 copies/mL (NOT DETECTED); HIV RNA PCR Qn Log Copies 4.49 (NOT DETECTED)
[2024-05-01 18:18] LABS: Absolute CD3 Count 996 cells/uL (840-3060); Absolute CD4 Count 610 cells/uL (490-1740); Absolute CD8 Count 399 cells/uL (180-1170); Absolute Lymphocytes 1279 cells/uL (850-3900); CD4 CD8 Ratio 1.53 (0.86-5.00); Percent CD3 Cells 78 % (57-85); Percent CD4 Cells 48 % (30-61); Percent CD8 Cells 31 % (12-42)
== END 2024-04-28 09:54 | disposition home or self-care (01) ==
LOC: HO.HHCL 09:53
PROVIDERS: Visit Provider Student in an Organized Health Care Education/Training Program
DX: Z21 Asymptomatic human immunodeficiency virus [HIV] infection status (principal)
CPT/HCPCS: 36415; 80053; 85025; 86359; 86360; 87522; 87536

== ENCOUNTER 2024-06-26 12:06 | Outpatient (REF) | payer MEDICARE, SELFPAY ==
--- OUTSIDE RECORDS SUMMARY | 2024-06-26 15:31 | XMS_ITS | Clinical Summary ---
Author Organization [facility] ity Address [address] [place] [address] Care Team Providers Care Computer Compositor Name Role Phone Unavailable Primary Care Provider Unavailabl e Social History Tobacco Use Types Packs/Day Years Used Date Smoking Tobacco: Never Assessed Comments Unknown Sex and Gender Information Value Date Recorded Sex Assigned at Not on file Legal Sex Female 2:09 PM EST Gender Identity Not on file Sexual Orientation Not on file Plan of Treatment Health Maintenance Due Date Last Done Comments Breast Cancer Screening 1966 DTaP,Tdap,and Td Vaccines (1 - Tdap) 1985 Hepatitis B Vaccines (1 of 3 - 19+ 3-dose series) 1985 Cervical Cancer Screening: P ap Smear 11/04/1987 Pneumococcal Vaccine: 50+ Ye ars (1 of 1 - PCV) 2016 Zoster Vaccines (1 of 2) 2016 COVID-19 Vaccine ( - 2023-2 5 season) 2023 Influenza Vaccine (#1) 2023 HIB Vaccines Aged Out No longer eligi ble based on patient's age to complete this topic HPV Vaccines Aged Out No longer eligi ble based on patient's age to complete this topic Hepatitis A Vaccines Aged Out No long er eligible based on patient's age to complete this topic IPV Vaccines Aged Out No longer eligi ble based on patient's age to complete this topic MMR Vaccines Aged Out No longer eligi ble based on patient's age to complete this topic Meningococcal ACWY Vaccine Aged Out N o longer eligible based on patient's age to complete this topic Meningococcal B Vacine Aged Out No lo nger eligible based on patient's age to complete this topic Pneumococcal Vaccine: Pediat rics (0 to 5 Years) and At-Risk Patients (6 to 64 Years) Aged Out No longer eligible b ased on patient's age to complete this topic RSV Immunization Patients Un rahat 20 months Aged Out No longer eligible b ased on patient's age to complete this topic Varicella Vaccines Aged Out No longer eligible based on patient's age to complete this topic
[2024-06-27 14:48] LABS: HIV RNA PCR Qn Copies 27 copies/mL (NOT DETECTED); HIV RNA PCR Qn Log Copies 1.43 (NOT DETECTED)
[2024-06-30 23:44] LABS: Absolute CD3 Count 1663 cells/uL (840-3060); Absolute CD4 Count 1087 cells/uL (490-1740); Absolute CD8 Count 584 cells/uL (180-1170); Absolute Lymphocytes 2178 cells/uL (850-3900); CD4 CD8 Ratio 1.86 (0.86-5.00); Percent CD3 Cells 76 % (57-85); Percent CD4 Cells 50 % (30-61); Percent CD8 Cells 27 % (12-42)
== END 2024-06-26 12:07 | disposition home or self-care (01) ==
LOC: HO.HHCL 12:06
PROVIDERS: Visit Provider Internal Medicine
DX: Z21 Asymptomatic human immunodeficiency virus [HIV] infection status (principal)
CPT/HCPCS: 36415; 86359; 86360; 87536

== ENCOUNTER 2025-03-02 11:34 | Outpatient (REF) | payer MEDICARE, SELFPAY ==
[2025-03-02 13:38] LABS: MANUAL DIFF FLAG NO
[2025-03-02 13:49] LABS: Hematocrit 36.9 % (37.0-47.0); Hemoglobin 11.8 g/dl (12.0-16.0); Imm Gran Abs Auto 0.01 X10*3/uL (0.00-0.03); Imm Gran Pct Auto 0.2 % (0.0-0.4); Lymphocytes Absolute Auto 1.6 X10*3/uL (1.2-4.9); Mean Corpuscular HGB Conc 32.0 g/dl (31.0-35.0); Mean Corpuscular Hemoglobin 29.1 pg (27.0-33.0); Mean Corpuscular Volume 90.9 fL (80.0-98.0); NRBC Abs Auto 0.000 X10*3/uL (0.0-0.012); NRBC Pct Auto 0.0 /100WBC (0.0-0.2); Platelet Count 290 X10*3/uL (160-400); Red Blood Count 4.06 X10*6/uL (4.20-5.50); White Blood Count 4.2 X10*3/uL (4.8-10.8)
[2025-03-02 14:09] LABS: Alanine Aminotransferase 15 U/L (0-31); Albumin Level 4.4 g/dL (3.5-5.0); Alkaline Phosphatase 75 U/L (39-117); Anion Gap 14 (12-20); Aspartate Amino Transferase 43 U/L (5-31); Blood Urea Nitrogen 18 mg/dL (9-16); Calcium 9.3 mg/dL (8.4-10.2); Carbon Dioxide 18 mmol/L (22-29); Chloride 112 mmol/L (96-108); Cholesterol 222 mg/dL (<200); Estimated Glomerular Filt Rate > 60; HDL Cholesterol 69 mg/dL (>40); Potassium 3.5 mmol/L (3.3-5.1); Sodium 140 mmol/L (135-145); Total Protein 8.2 g/dL (6.5-8.0); Triglycerides 135 mg/dL (<150)
[2025-03-02 14:35] LABS: Reflex LDLD? No
[2025-03-05 00:43] LABS: TS Negative Control Passed; TS Panel A 0; TS Panel B 0; TS Positive Control Passed; TSpotTB Negative (Negative)
[2025-03-05 04:33] LABS: HIV RNA PCR Qn Copies 128000 copies/mL (NOT DETECTED); HIV RNA PCR Qn Log Copies 5.11 (NOT DETECTED)
[2025-03-07 14:18] LABS: Absolute CD3 Count 1228 cells/uL (840-3060); Absolute CD8 Count 676 cells/uL (180-1170); Percent CD3 Cells 72 % (57-85); Percent CD8 Cells 40 % (12-42)
== END 2025-03-02 11:35 | disposition home or self-care (01) ==
LOC: HO.HHCL 11:34
PROVIDERS: PCP Student in an Organized Health Care Education/Training Program; Visit Provider Student in an Organized Health Care Education/Training Program
DX: Z21 Asymptomatic human immunodeficiency virus [HIV] infection status (principal); Z11.1 Encounter for screening for respiratory tuberculosis; Z13.6 Encounter for screening for cardiovascular disorders
CPT/HCPCS: 36415; 80053; 80061; 85025; 86359; 86360; 86481; 87536